=== PATIENT | female | born 1960 | race Caucasian/White ===

== ENCOUNTER 2025-01-05 09:49 | Outpatient (AMB) | payer BC, SELFPAY ==
--- NOTE | 2025-01-05 09:58 | A.OFFPC_ITS ---
Vital Signs 01/05/25 09:59 Height 5 ft 6.14 in Weight 135 lb BMI 21.7 BP 110/60 Blood Pressure Location Rt brachial Position Sitting Pulse 68 Pulse Source Pulse Oximeter Temp 96.9 F Temp Source Temporal Artery Scan Pulse Oximetry (%) 99 Oxygen Delivery Method Room Air Intake Visit Reasons: Establish Care Intake Note: Patient is a new patient here to establish care for Osteoporosis. Transferring care from [facility] ([place] Medical records have been requested and have not received. Tip Bander Required: No Frame Sample And Pattern Supervisor: Present Accompanied by: Spouse Allergies No Known Allergies Allergy (Verified 01/05/25 10:17) Medication List - Last Reconciled 01/05/25 by Nery Marmolejo PA-C amoxicillin 875 mg PO BID fluticasone propionate 50 mcg/actuation 1 spray intranasal BID Tobacco use date assessed: 01/05/25 Dental Screening Dental Screen Date: 01/05/25 Did you have a dental visit in the last 12 months?: Yes Did you have a dental problem in the last 6 months where you did not have access to dental care?: No Was dental information given to patient?: Patient has dentist HPI Establish Care HPI Details 64-year-old female coming to the office for the 1st time.? Patient is not known to [facility]. Patient is up-to-date on her bone density scan and mammogram. Last bone density scan 01/11/2024 revealing osteoporosis mammogram completed 11/21/2023 negative follow up in 1 year. The patient is a 64-year-old female presenting with coccyx pain. She has a known history of osteoporosis with previous implications for her lumbar spine and left femur, for which she is not currently on pharmacological treatment due to side effect concerns. The coccyx pain is revisiting a past injury, causing persistent localized tenderness, starting approximately six months ago. The patient has had previous falls but no recent ones correlating with this pain. An x-ray is suggested due to the risk indices involved associated with osteoporosis and possible pathological fractures. The patient reports historical sinusitis currently being treated with antibiotics, as well as recurrent earwax impaction which was addressed in a recent urgent care visit. 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 1. Little interest or pleasure in doing things: nearly every day 2. Feeling down, depressed, or hopeless: nearly every day 4. Feeling tired or having little energy: not at all 5. Poor appetite or overeating: not at all 6. Feeling bad about yourself - or that you are a failure or have let yourself or your family down: not at all 7. Trouble concentrating on things, such as reading the newspaper or watching television: not at all 8. Moving or speaking so slowly that other people could have noticed. Or the opposite - being so fidgety or restless that you have been moving around a lot more than usual: not at all 9. Thoughts that you would be better off or of hurting yourself in some way: not at all Depression Screening Interpretation: Positive Depression Screening Follow-up: Existing condition and Declines treatment Depression Screening Done: Yes Source: Developed by Drs. Shashi Springer, Yaneth Mcclellan, Andres Jimenes and colleagues, with an educational fletcher from [employer]. Thrive Questionnaire Date Thrive assessed: 01/05/25 I am a: Patient What is your living situation today?: I have a steady place to live Within the past 12 months, did the food you bought not last and you didn't have the money to get more?: Never true Within the past 12 months, did you worry whether your food would run out before you got money to buy more?: Never true Do you have trouble paying for medicines?: No Do you have trouble getting transportation to medical appointments?: No Do you have trouble paying your heating and electricity bill?: No Do you have trouble taking care of your child, family member or friend?: No Do you have trouble with day-to-day activities such as bathing, preparing meals, shopping, managing finances, etc.?: No Are you currently unemployed and looking for a job?: No Are you interested in more education?: No Please select the resources that you would like help with: None Currently or been in a relationship where the following occur: No concerns reported THRIVE Score: 0 AUDIT C Alcohol Use Questionnaire (AUDIT-C) 1. How often do you have a drink containing alcohol?: Never 3. How often do you have six or more drinks on one occasion?: Never Total Score: 0 CATRACHO-7 AMB Questionnaire CATRACHO-7 Date CATRACHO - 7 assessed: 01/05/25 Feeling nervous, anxious, or on edge: 0 = Not at all Not being able to stop or control worryin = Not at all Worrying too much about different things: 0 = Not at all Trouble relaxin = Not at all Being so restless that it is hard to sit still: 0 = Not at all Becoming easily annoyed or irritable: 0 = Not at all Feeling afraid as if something awful might happen: 0 = Not at all Total CATRACHO-7 score (0-4 normal; 5-9 mild; 10-14 moderate; 15-21 severe): 0 Source: Developed by Drs. Shashi Springer, Yaneth Mcclellan, Andres Jimenes and colleagues, with an educational fletcher from [employer]. Review of Systems Const Denies body aches, Denies chills, Denies fever(s), Denies headache(s) and Denies poor appetite Eyes Reports no additional complaints ENT Denies dysphagia, Denies dizziness, Denies headache(s) and Denies odynophagia Card Denies chest pain, Denies syncope, Denies edema, Denies irregular heart rhythm, Denies lightheadedness and Denies dyspnea Resp Denies cough and Denies dyspnea GI Denies abdominal pain, Reports constipation, Denies dysphagia, Denies diarrhea, Denies nausea, Denies odynophagia and Denies vomiting Reports no additional complaints Musc Reports no additional complaints and Denies abnormal gait Skin/Breast Reports system reviewed and no additional complaints, except as documented Neuro Denies abnormal gait, Denies dizziness, Denies syncope and Denies headache(s) Psych Reports no additional complaints Physical exam (Primary Care) Vital Signs: Last Vital Signs Temp 96.9 F 01/05/25 09:59 Pulse 68 01/05/25 09:59 BP 110/60 01/05/25 09:59 Pulse Ox 99 01/05/25 09:59 Oxygen Delivery Method Room Air 01/05/25 09:59 BMI result Body Mass Index 21.7 Tobacco/Smoking Status: Tobacco use Status Tobacco use date assessed 01/05/25 01/05/25 10:04 Patient Tobacco Use Status Never used Tobacco 01/05/25 10:04 e-Cigarette/Vaping Use Never Used 01/05/25 10:04 Depression Screening Interpretation: Positive Depression Screening Follow-up: Existing condition and Declines treatment Thrive Assessment: Date of Thrive Assessment Date Thrive assessed 01/05/25 01/05/25 10:04 Currently or been in a relationship where the following occur: No concerns reported Const General: cooperative, healthy appearing, comfortable and no acute distress Orientation/consciousness: patient oriented x3 HENMT Head: Yes normocephalic Ears: hearing grossly normal bilaterally General nose exam: Normal external nose present Eyes General: appearance normal, both eyes and all related structures Conjunctivae: conjunctivae normal Neck Neck: Yes full ROM and Yes no lymphadenopathy Resp Effort & Inspection: normal respiratory effort Auscultation: clear to auscultation bilaterally, no crackles, no rales, no rhonchi and no wheezes Cardio Rate: regular rate Rhythm: regular rhythm Back/Spine/Pelvis Other: Pain to palpation over coccyx region Skin General skin exam: no rashes or lesions noted Neuro General: patient oriented x3 Gait exam (Neuro): Normal gait present Extrem General: Yes normal to inspection, Yes full ROM and No edema Psych Affect: normal affect Attitude: cooperative Insight: Good insight present (Psych) Judgement: Good judgement present (Psych) Coding Level of Care Code New Pt Level 4 (84971) Diagnoses Osteoporosis M81.0 Coccyx pain M53.3 Screening for hypercholesterolemia Z13.220 Assessment & Plan Assessment & Plan (1) Osteoporosis: Code(s): M81.0 - Age-related osteoporosis without current pathological fracture Category: Medical Plan: The patient is advised to continue with her calcium and vitamin D regimen, and to engage in non-strenuous physical activity to prevent falls and benefit bone health. Referral placed to endocrinology (2) Coccyx pain: Code(s): M53.3 - Sacrococcygeal disorders, not elsewhere classified Category: Medical Plan: The patient will undergo an x-ray to assess the possibility of a fracture in the coccyx region. Discussions included osteoporosis management, highlighting potential material lister consultations for biologic options considering past negative experiences with bisphosphonates. (3) Screening for hypercholesterolemia: Code(s): Z13.220 - Encounter for screening for lipoid disorders Category: Medical Plan: Plans for regular screenings, including a scheduled mammogram and comprehensive bloodwork focusing on overall health, were also discussed. Blood work ordered Plan Patient was informed and verbally consented to the use of an ambient scribe for clinic note documentation during this visit. This note was constructed using voice recognition software. While every effort has been made to ensure accuracy and hogshead opener, still areas may have been included sometimes these areas may affect the content or meeting of the given symptoms. Total time spent caring for the patient today was 30 minutes. This includes time spent before the visit reviewing the chart, time spent during the visit, and time spent after the visit and documentation. Orders: Orders XR sacrum coccyx min 2V Today M53.3 - Sacrococcygeal disorders, not elsewhere classified Lipid Panel Today Z13.220 - Encounter for screening for lipoid disorders TSH reflex Free T4 Today Z00.00 - Encounter for general adult medical examination without abnormal findings Vitamin B12 and Folate Today Z00.00 - Encounter for general adult medical examination without abnormal findings Complete Blood Count Auto Diff Today Z00.00 - Encounter for general adult medical examination without abnormal findings Comprehensive Met. Panel Today Z00.00 - Encounter for general adult medical examination without abnormal findings Free T4 (Free Thyroxine) Today Z00.00 - Encounter for general adult medical examination without abnormal findings Vitamin D 25-OH Total Today Z00.00 - Encounter for general adult medical examination without abnormal findings Referrals Endocrinology Referral M81.0 - Age-related osteoporosis without current pathological fracture
[2025-01-05 09:59] VITALS: BP 110/60; PULSE 68; TEMP 36.1; O2SAT 99; BMI 21.7
--- OUTSIDE RECORDS SUMMARY | 2025-01-05 10:42 | XMS_ITS | Clinical Summary ---
Author Organization [facility] Address [address] [place] [phone] Phone Care Team Providers Care Table Saw Operator Name Role Phone Melanie Genao Primary Care Provider [phone] Allergies No known active allergies Medications cephalexin (KEFLEX) 500 mg capsule 11/25/2023 Active VITAMIN K2 ORAL Take by mouth 1 (one) time each day. Active multivitamin (MULTIPLE VITAMINS ORAL) Take by mouth. Active pyridoxine (B-6) 100 mg tablet Take 1 tablet (100 mg total) by mouth 1 (one) time each day. Active OMEGA-3 FATTY ACIDS-FISH OIL ORAL Take 2 tablets by mouth 1 (one) time each day. 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 Anxiety state 01/15/2007 Immunizations Name Administration Dates Next Due Tdap Tetanus diptheria acell ular pertussis (Boostrix; Adacel) 7yo and older 11/25/2023,02/18/2013 Surgical History Surgery Date Site/Laterality Comments OTHER SURGICAL HISTORY PROCEDURE: VA LAPS ABD PRTM&OMENTUM DX W/WO SPEC BR/WA SPX; COMMENT: exploratory lap for infertility COLONOSCOPY 2012 PROCEDURE: VA COLONOSCOPY FLX DX W/COLLJ SPEC WHEN PFRMD; COMMENT: normal CATARACT EXTRACTION 2013 Left PROCEDURE: HISTORICAL CATARACT REMOVAL Medical History Medical History Date Comments Anxiety state, unspecified DX:An xiety state, unspecified Premature ovarian failure age 40 DX:Pre mature ovarian failure Abnormal mammogram 07/20/2014 DX:Abnormal m ammogram Osteoporosis 06/14/2019 DX:Osteoporosis Family History Medical History Relation Name Comments Colon cancer Father he had UC as we ll. Other: Major depression Mother Relation Name Status Comments Father Alive Mother Alive Social History Tobacco Use Types Packs/Day Years Used Date Smoking Tobacco: Former Cigarettes Q uit: 02/18/2001 Smokeless Tobacco: Never Alcohol Use Standard Drinks/Week Comments Yes 0 (1 standard drink = 0.6 oz pur e alcohol) Comments Unknown Sex and Gender Information Value Date Recorded Sex Assigned at Not on file Legal Sex Female 2:36 AM EST Gender Identity Not on file Sexual Orientation Not on file Obstetrics History Last Filed Vital Signs Vital Sign Reading Time Taken Comments Blood Pressure 140/82 11/27/2023 11:07 AM EST Pulse 64 11/27/2023 11:07 AM EST Temperature - - Respiratory Rate - - Oxygen Saturation - - Inhaled Oxygen Concentration - - Weight 63.6 kg (140 lb 3.2 oz) 11/27/2023 11:07 AM EST Height 170.2 cm (5' 7 ) 11/27/2023 11:07 AM EST Body Mass Index 21.96 11/27/2023 11:07 AM EST Plan of Treatment Upcoming Encounters Date Type Department Care Team (Late st Contact Info) Description 01/07/2025 8:30 AM EST Appointment [facility] [address] [place] [id number] 06/12/2025 2:00 PM EDT Office Visit Internal Medicine - [place] [address] [facility] [address] [place] [id number] Carlos Alberto Woodward MD [address] [facility] [address] [place] [address] Health Maintenance Due Date Last Done Comments Pneumococcal Vaccine: 50+ Years (1 of 1 - PCV) 2011 Zoster Vaccines (1 of 2) 2011 Cervical Cancer Screening: Pap Smear 12/10/2014 12/10/2011, 12/10/2011 Colorectal Cancer Screening: Colonoscopy 10/26/2022 Depression Screening 10/26/2022 HIV Screening 10/26/2022 Social Influencers of Health Screening 10/26/2022 COVID-19 Vaccine ( season) 2024 05/08/2021, 04/10/2021 Influenza Vaccine (#1) 2024 Breast Cancer Screening 11/23/2025 11/23/19 24, 08/03/2022, 07/28/2021, Additional history exists Cholesterol Screening (Lipid Panel) 06/16/2027 06/16/2022 DTaP,Tdap,and Td Vaccines (3 - Td or Tdap) 11/25/2033 11/25/2023, 02/18/2013 Osteoporosis Screening (Bone Density Screening) 01/11/2034 01/11/2024, 07/15/2021, 06/13/2019 RSV Immunization Patients 60+ Years Old (1 - 1-dose 75+ series) 2036 Hepatitis C Screening Completed 03/19/2017 HIB Vaccines Aged Out No longer eligi ble based on patient's age to complete this topic HPV Vaccines Aged Out No longer eligi ble based on patient's age to complete this topic Hepatitis A Vaccines Aged Out No long er eligible based on patient's age to complete this topic Hepatitis B Vaccines Aged Out No long er eligible based on patient's age to complete this topic IPV Vaccines Aged Out No longer eligi ble based on patient's age to complete this topic MMR Vaccines Aged Out No longer eligi ble based on patient's age to complete this topic Meningococcal ACWY Vaccine Aged Out N o longer eligible based on patient's age to complete this topic Meningococcal B Vacine Aged Out No lo nger eligible based on patient's age to complete this topic Pneumococcal Vaccine: Pediatrics (0 to 5 Years) and At-Risk Patients (6 to 64 Years) Aged Out No longer eligible based on patient's age to complete this topic RSV Immunization Patients Under 20 months Aged Out No longer eligible based on patient's age to complete this topic Varicella Vaccines Aged Out No longer eligible based on patient's age to complete this topic Procedures Procedure Name Priority Date/Time Associated Diagnosis Comments SUE DEXA AXIAL SKELETON Routine 01/11/2024 5:18 PM EST Age-related osteoporosis without current pathological fracture SUE SCREENING DIGITAL Routine 11/23/2023 10:04 AM EST Encounter for screening mammogram for malignant neoplasm of breast LIPID PANEL Routine 06/16/2022 HM HEPATITIS C SCREENING Routine 03/19/2017 HPV Routine 12/10/2011 from Last 3 Months or Most Recently Relevant to Health Maintenance Results * [facility] DEXA AXIAL SKELETON (01/11/2024 5:18 PM EST) Anatomical Region Laterality Modality Mammography 01/11/2024 9:27 AM EST Narrative 01/11/2024 5:18 PM EST [facility] Diagnostic Imaging Department [address] [place] [address] Patient: ??PARENT,LAUREN ?/Age/Sex: 1960 - 63 - F Unit#: ??[id number] ? Location/Status: ??SPDIMAM/REG CLI ? Mnemonic/Ordering Site: ??MAMDEXAAX/SPMAM Ordering Physician: ??DOROTHY MAGDALENO MD [facility] Dexa Axial Skeleton - 01/11/24 - 956 Report Status:Signed History: Low estrogen state due to menopause. Tobacco user. Comparison: 07/15/21 Findings: Bone densitometry is performed utilizing dual energy x-ray absorptiometry (DXA) in the [employer] unit. The lumbar spine and proximal femora are evaluated in the AP projection. The FRAX questionaire was completed. The results indicate osteoporosis, with a lumbar spine T-score of -3.0. The Z score is -1.5, indicating low bone mineral density for age. There has been a statistically significant decrease in bone mineral density in the spine since the previous study. ??The detailed DEXA report will be mailed to the referring physician's office. DualFemur FRAX: 10-year Probability of Fracture: Major Osteoporotic 8.3 percent Hip 0.9 percent. IMPRESSION: Osteoporosis. [id number] Dictating Physician: ??ADELAIDA MELISSA MD Electronically Signed by: ??ADELAIDA MELISSA MD Dic Date/Time: ??01/11/241717 Sign date/Time: ??01/11/241717 Procedure Note Adelaida Melissa MD - 07/04/2024 [facility] Diagnostic Imaging Department [address] [place] [address] Patient: LAUREN BRAXTON /Age/Sex: 1960 - 63 - F Unit#: [id number] Location/Status: [facility] Mnemonic/Ordering Site: [facility] Ordering Physician: DOROTHY MAGDALENO MD [facility] Dexa Axial Skeleton - 01/11/24 - 57 Report Status:Signed History: Low estrogen state due to menopause. Tobacco user. Comparison: 07/15/21 Findings: Bone densitometry is performed utilizing dual energy x-ray absorptiometry(DXA) in the [employer] unit. The lumbar spine and proximal femora areevaluated in the AP projection. The FRAX questionaire was completed. The results indicate osteoporosis, with a lumbar spine T-score of -3.0.The Z score is -1.5, indicating low bone mineral density for age. There has been a statistically significant decrease in bone mineraldensity in the spine since the previous study. The detailed DEXA report will bemailed to the referring physician's office. DualFemur FRAX: 10-year Probability of Fracture: Major Osteoporotic 8.3percent Hip 0.9 percent. IMPRESSION: Osteoporosis. [id number] Dictating Physician: ADELAIDA MELISSA MD Electronically Signed by: ADELAIDA MELISSA MD Dic Date/Time: 01/11/241717 Sign date/Time: 01/11/241717 us Dorothy Magdaleno MD IMG BI PROCEDURES Final Resu lt * SUE SCREENING DIGITAL (11/23/2023 10:04 AM EST) Anatomical Region Laterality Modality Mammography 11/19/2023 8:25 AM EST Narrative 11/23/2023 10:04 AM EST [facility] Diagnostic Imaging Department [address] [place] [address] Patient: ??PARENT,LAUREN ?/Age/Sex: 1960 - 63 - F Unit#: ??[id number] ? Location/Status: ??SPDIMAM/REG CLI ? Mnemonic/Ordering Site: ??DIGSC/SPMAIN Ordering Physician: ??DOROTHY MAGDALENO MD [facility] Screening Digital - 11/21/23 - 1027 Report Status:Signed EXAM: [facility] Screening Digital EXAM DATE AND TIME: 11/21/2023 10:27 AM HISTORY: ??Annual screening COMPARISON: ??Multiple exams dating back to 2002 TECHNIQUE: Bilateral digital breast tomosynthesis was performed in the CC and MLO projections. Computer aided detection with [employer] 3D 3.1 was employed. TISSUE DENSITY: b. There are scattered areas of fibroglandular density. FINDINGS: No suspicious masses, grouped microcalcifications, or areas of architectural distortion are seen. The skin and vascularity are unremarkable. IMPRESSION: Stable mammographic appearance of the breasts. ??No evidence of malignancy is seen. A negative mammogram in the presence of a clinically suspicious palpable abnormality does not preclude the possibility of malignancy or alter the indications for biopsy. BI-RADS: ??Category 1: Negative RECOMMENDATION(S): 1: Routine screening mammogram BILATERAL in 1 year. 3341F, 7025F Dictating Physician: ??JOSE GUADALUPE TRIANA MD Electronically Signed by: ??JOSE GUADALUPE TRIANA MD Dic Date/Time: ??11/23/23 1004 Sign date/Time: ??11/23/23 1004 Procedure Note Jose Guadalupe Triana MD - 07/04/2024 [facility] Diagnostic Imaging Department [address] [place] [id number] Patient: PARENTLAUREN /Age/Sex: 1960 - 63 - F Unit#: [id number] Location/Status: SPDIMA/REG CLI Mnemonic/Ordering Site: [facility] Ordering Physician: DOROTHY MAGDALENO MD [facility] Screening Digital - 11/21/23 - 1027 Report Status:Signed EXAM: [facility] Screening Digital EXAM DATE AND TIME: 11/21/2023 10:27 AM HISTORY: Annual screening COMPARISON: Multiple exams dating back to 2002 TECHNIQUE: Bilateral digital breast tomosynthesis was performed in the CCand MLO projections. Computer aided detection with [employer] 3D 3.1was employed. TISSUE DENSITY: b. There are scattered areas of fibroglandular density. FINDINGS: No suspicious masses, grouped microcalcifications, or areas ofarchitectural distortion are seen. The skin and vascularity are unremarkable. IMPRESSION: Stable mammographic appearance of the breasts. No evidence of malignancyis seen. A negative mammogram in the presence of a clinically suspicious palpable abnormality does not preclude the possibility of malignancy or alter the indications for biopsy. BI-RADS: Category 1: Negative RECOMMENDATION(S): 1: Routine screening mammogram BILATERAL in 1 year. 3341F, 7025F Dictating Physician: JOSE GUADALUPE TRIANA MD Electronically Signed by: JOSE GUADALUPE TRIANA MD Dic Date/Time: 11/23/23 1004 Sign date/Time: 11/23/23 1004 Dorothy Magdaleno MD IMG BI PROCEDURES Final Resu lt * Lipid panel (06/16/2022) Pathologist [facility] LDL/HDL Ratio 3 0 - 4 Triglycerides 122 0 - 150 mg/dL Cholesterol 196 0 - 200 mg/dL HDL 72 >=40 mg/dL LDL Cholesterol 100 0 - 100 mg/dL Blood Venous blood specimen / Unknown Historical Provider LAB BLOOD ORDERABLES Suzanna l Result * Hepatitis C Screening (03/19/2017) Pathologist [facility] Hepatitis C Screening abstracted Historical Provider HEALTH MAINTENANCE Final Result * Cervical Cancer Screening: HPV (12/10/2011) Cervical Cancer Screening: HPV negative, abstracted us Historical Provider HEALTH MAINTENANCE Final Result from Last 3 Months or Most Recently Relevant to Health Maintenance Insurance [facility] Care Teams Table Saw Operator Relationship Specialty Start Date End Date Melanie Genao DO PCP - General Internal Medicine 02/05/22
== END 2025-01-05 10:45 | disposition home or self-care (01) ==
DX: M81.0 Age-related osteoporosis without current pathological fracture (principal); M53.3 Sacrococcygeal disorders, not elsewhere classified; Z13.220 Encounter for screening for lipoid disorders

== ENCOUNTER 2025-01-05 09:49 | Outpatient (REF) | payer BC, SELFPAY ==
--- NOTE | ~2025-01-05 | XR_ITS ---
EXAMINATION: XR SACRUM AND COCCYX CLINICAL INFORMATION: M53.3 - Sacrococcygeal disorders, not elsewhere classified COMPARISON: None available. TECHNIQUE: 2 views of the sacrum and 2 views of the coccyx were obtained. FINDINGS: No acute cortical disruption. Spondylosis lower lumbar spine. Osteopenia versus osteoporosis. No lytic or blastic lesions. Sclerosis in the left sacroiliac joint. XR/XR sacrum coccyx min 2V IMPRESSION: No gross acute fracture. Probable sacroiliitis, left side. Lower lumbar spondylosis. Electronically signed by: Mohinder Horvath MD 01/05/2025 03:43 PM SERGEY
--- OUTSIDE RECORDS SUMMARY | 2025-01-05 12:16 | XMS_ITS | Clinical Summary ---
Author Organization [facility] Address [address] [place] [phone] Phone Care Team Providers Care Hand Frame Surgical Elastic Knitter Name Role Phone Melanie Genao Primary Care Provider [phone] Allergies No known active allergies Medications cephalexin [...] Date Site/Laterality Comments OTHER SURGICAL HISTORY PROCEDURE: ID LAPS ABD PRTM&OMENTUM DX W/WO SPEC BR/WA SPX; COMMENT: exploratory lap for infertility COLONOSCOPY 2012 PROCEDURE: ID COLONOSCOPY FLX DX W/COLLJ SPEC WHEN PFRMD; [...] AM EST Appointment [facility] [address] [place] [id number] 06/12/2025 2:00 PM EDT Office Visit Internal Medicine - [place] 175 [facility] [address] [place] [phone] Carlos Alberto Woodward MD 175 [facility] [address] [place] [address] Health Maintenance Due Date Last Done Comments [...] Recently Relevant to Health Maintenance Results * [facility] DEXA AXIAL SKELETON (01/11/2024 5:18 PM EST) Anatomical Region Laterality Modality Mammography 01/11/2024 9:27 AM EST Narrative 01/11/2024 5:18 PM EST [facility] Diagnostic Imaging Department [address] [place] [address] Patient: ??PARENT,LAUREN ?/Age/Sex: 1960 - 63 - F Unit#: ??[id number] ? Location/Status: ??SPDIMAM/REG CLI ? Mnemonic/Ordering Site: ??MAMDEXAAX/SPMAM Ordering Physician: ??DOROTHY MAGDALENO MD [facility] Dexa Axial Skeleton - 01/11/24 - 956 Report Status:Signed History: Low estrogen state due to menopause. Tobacco user. Comparison: 07/15/21 Findings: Bone densitometry is performed utilizing dual energy x-ray absorptiometry (DXA) in the [employer] unit. The lumbar spine and proximal femora [...] 8.3 percent Hip 0.9 percent. IMPRESSION: Osteoporosis. [id number] Dictating Physician: ??ADELAIDA MELISSA MD Electronically Signed by: ??ADELAIDA MELISSA MD Dic Date/Time: ??01/11/241717 Sign date/Time: ??01/11/241717 Procedure Note Adelaida Melissa MD - 07/04/2024 [facility] Diagnostic Imaging Department [address] [place] [address] Patient: LAUREN BRAXTON /Age/Sex: 1960 - 63 - F Unit#: [id number] Location/Status: [facility] Mnemonic/Ordering Site: [facility] Ordering Physician: DOROTHY MAGDALENO MD [facility] Dexa Axial Skeleton - 01/11/24 - 57 Report Status:Signed History: Low estrogen state due to menopause. Tobacco user. Comparison: 07/15/21 Findings: Bone densitometry is performed utilizing dual energy x-ray absorptiometry(DXA) in the [employer] unit. The lumbar spine and proximal femora [...] Osteoporotic 8.3percent Hip 0.9 percent. IMPRESSION: Osteoporosis. [id number] Dictating Physician: ADELAIDA MELISSA MD Electronically Signed by: ADELAIDA MELISSA MD Dic Date/Time: 01/11/241717 Sign date/Time: 01/11/241717 us Dorothy Magdaleno MD IMG BI PROCEDURES Final Resu lt * SUE SCREENING DIGITAL (11/23/2023 10:04 AM EST) Anatomical Region Laterality Modality Mammography 11/19/2023 8:25 AM EST Narrative 11/23/2023 10:04 AM EST [facility] Diagnostic Imaging Department [address] [place] [address] Patient: ??PARENT,LAUREN ?/Age/Sex: 1960 - 63 - F Unit#: ??[id number] ? Location/Status: ??SPDIMAM/REG CLI ? Mnemonic/Ordering Site: ??DIGSC/SPMAIN Ordering Physician: ??DOROTHY MAGDALENO MD [facility] Screening Digital - 11/21/23 - 1027 Report Status:Signed EXAM: [facility] Screening Digital EXAM DATE AND TIME: 11/21/2023 10:27 AM HISTORY: ??Annual screening COMPARISON: ??Multiple exams dating back to 2002 TECHNIQUE: Bilateral digital breast tomosynthesis was performed in the CC and MLO projections. Computer aided detection with [employer] 3D 3.1 was employed. TISSUE DENSITY: b. [...] Note Jose Guadalupe Triana MD - 07/04/2024 [facility] Diagnostic Imaging Department [address] [place] [id number] Patient: PARENTLAUREN /Age/Sex: 1960 - 63 - F Unit#: [id number] Location/Status: SPDIMA/REG CLI Mnemonic/Ordering Site: [facility] Ordering Physician: DOROTHY MAGDALENO MD [facility] Screening Digital - 11/21/23 - 1027 Report Status:Signed EXAM: [facility] Screening Digital EXAM DATE AND TIME: 11/21/2023 10:27 AM HISTORY: Annual screening COMPARISON: Multiple exams dating back to 2002 TECHNIQUE: Bilateral digital breast tomosynthesis was performed in the CCand MLO projections. Computer aided detection with [employer] 3D 3.1was employed. TISSUE DENSITY: b. There [...] Resu lt * Lipid panel (06/16/2022) Pathologist [facility] LDL/HDL Ratio 3 0 - 4 Triglycerides 122 0 - 150 mg/dL Cholesterol 196 0 - 200 mg/dL HDL 72 >=40 mg/dL LDL Cholesterol 100 0 - 100 mg/dL Blood Venous blood specimen / Unknown Historical Provider LAB BLOOD ORDERABLES Suzanna l Result * Hepatitis C Screening (03/19/2017) Pathologist [facility] Hepatitis C Screening abstracted Historical Provider HEALTH MAINTENANCE Final Result * Cervical Cancer Screening: HPV (12/10/2011) Cervical Cancer Screening: HPV negative, abstracted us Historical Provider HEALTH MAINTENANCE Final Result from Last 3 Months or Most Recently Relevant to Health Maintenance Insurance [facility] Care Teams Hand Frame Surgical Elastic Knitter Relationship Specialty Start Date End Date Melanie Genao DO PCP - General Internal Medicine 02/05/22
== END 2025-01-05 09:50 | disposition home or self-care (01) ==
LOC: HO.XRAY 09:49
DX: M53.3 Sacrococcygeal disorders, not elsewhere classified (principal)
CPT/HCPCS: 72220

== ENCOUNTER → 2025-01-05 11:05 | Outpatient (BNV) | payer BC, SELFPAY | PROVIDERS: Visit Provider Radiology Diagnostic Radiology | DX: M46.1 Sacroiliitis, not elsewhere classified (principal); M47.896 Other spondylosis, lumbar region | CPT/HCPCS: 72220 ==

== ENCOUNTER 2025-01-06 10:00 | Outpatient (REF) | payer BC, SELFPAY ==
[2025-01-06 10:16] LABS: MANUAL DIFF FLAG NO
[2025-01-06 10:34] LABS: Basophils Absolute Auto 0.1 X10*3/uL (0.0-0.2); Basophils Percent Auto 0.7 % (0-2); Eosinophils Absolute Auto 0.1 X10*3/uL (0.0-0.4); Eosinophils Percent Auto 1.7 % (0-4); Hematocrit 40.1 % (37.0-47.0); Imm Gran Abs Auto 0.02 X10*3/uL (0.00-0.03); Imm Gran Pct Auto 0.3 % (0.0-0.4); Lymphocytes Absolute Auto 2.1 X10*3/uL (1.2-4.9); Lymphocytes Percent Auto 31.2 % (20-40); Mean Corpuscular HGB Conc 32.4 g/dl (31.0-35.0); Mean Corpuscular Hemoglobin 28.6 pg (27.0-33.0); Mean Corpuscular Volume 88.1 fL (80.0-98.0); Monocytes Absolute Auto 0.5 X10*3/uL (0.1-1.2); Monocytes Percent Auto 6.9 % (2-11); Neutrophils Absolute Auto 4.1 x10*3/uL (2.0-8.3); Neutrophils Percent Auto 59.2 % (45-73); Platelet Count 216 X10*3/uL (160-400); Red Blood Count 4.55 X10*6/uL (4.20-5.50); Red Cell Distribution Width 13.7 % (11.0-16.0); White Blood Count 6.9 X10*3/uL (4.8-10.8)
--- OUTSIDE RECORDS SUMMARY | 2025-01-06 10:44 | XMS_ITS | Clinical Summary ---
Author Organization [facility] Address [address] [place] [phone] Phone Care Team Providers Care Corn Lab Technician Name Role Phone Nery Marmolejo Primary Care Provider Allergies No known active allergies Medications cephalexin [...] Date Site/Laterality Comments OTHER SURGICAL HISTORY PROCEDURE: [place] LAPS ABD PRTM&OMENTUM DX W/WO SPEC BR/WA SPX; COMMENT: exploratory lap for infertility COLONOSCOPY 2012 PROCEDURE: [place] COLONOSCOPY FLX DX W/COLLJ SPEC WHEN PFRMD; [...] Information Value Date Recorded Sex Assigned at Female 01/05/2025 12:34 PM EST Legal Sex Female 2:36 AM EST Gender Identity Female 01/05/2025 12:34 PM EST Sexual Orientation Not on file Obstetrics History [...] AM EST Appointment [facility] [address] [place] [phone] 06/12/2025 2:00 PM EDT Office Visit Internal Medicine - [place] [address] [phone] Carlos Alberto Woodward MD [address] [address] Health Maintenance Due Date Last Done Comments Pneumococcal Vaccine: 50+ Years (1 of 1 - PCV) 2011 Zoster Vaccines (1 of 2) 2011 Cervical Cancer Screening: Pap Smear 12/10/2014 12/10/2011, 12/10/2011 Colorectal Cancer Screening: Colonoscopy 10/26/2022 Depression Screening 10/26/2022 HIV Screening 10/26/2022 Social Influencers of Health Screening 10/26/2022 COVID-19 Vaccine (3 - 2023- season) 2024 05/08/2021, 04/10/2021 Influenza Vaccine (#1) [...] Procedure Name Priority Date/Time Associated Diagnosis Comments [facility] DEXA AXIAL SKELETON Routine 01/11/2024 5:18 PM EST Age-related osteoporosis without current pathological fracture [facility] SCREENING DIGITAL Routine 11/23/2023 10:04 AM EST Encounter for screening mammogram for malignant neoplasm of breast LIPID PANEL Routine 06/16/2022 HEPATITIS C SCREENING Routine 03/19/2017 HPV Routine 12/10/2011 from Last 3 Months or Most Recently Relevant to Health Maintenance Results * [facility] DEXA AXIAL SKELETON (01/11/2024 5:18 PM EST) Anatomical Region Laterality Modality Mammography 01/11/2024 9:27 AM EST Narrative 01/11/2024 5:18 PM EST [facility] Diagnostic Imaging Department [address] [place] [address] Patient: ??PARENT,LAUREN ?/Age/Sex: 1960 - 63 - F Unit#: ??[id number] ? Location/Status: ??SPDIMAM/REG CLI ? Mnemonic/Ordering Site: ??MAMDEXAAX/SPMAM Ordering Physician: ??DOROTHY MAGDALENO MD [facility] Dexa Axial Skeleton - 01/11/24 - 0957 Report Status:Signed History: Low estrogen state due to menopause. Tobacco user. Comparison: 07/15/21 Findings: Bone densitometry is performed utilizing dual energy x-ray absorptiometry (DXA) in the [employer] unit. The lumbar spine and proximal femora [...] 8.3 percent Hip 0.9 percent. IMPRESSION: Osteoporosis. [id number] Dictating Physician: ??ADELAIDA MELISSA MD Electronically Signed by: ??ADELAIDA MELISSA MD Dic Date/Time: ??01/11/241717 Sign date/Time: ??01/11/241717 Procedure Note Adelaida Melissa MD - 07/04/2024 [facility] Diagnostic Imaging Department [address] [place] [address] Patient: LAUREN BRAXOTN /Age/Sex: 1960 - 63 - F Unit#: [id number] Location/[facility] Mnemonic[facility]ing [facility] Ordering Physician: DOROTHY MAGDALENO MD [facility] Dexa Axial Skeleton - 01/11/24 - 0957 Report Status:Signed History: Low estrogen state due to menopause. Tobacco user. Comparison: 07/15/21 Findings: Bone densitometry is performed utilizing dual energy x-ray absorptiometry(DXA) in the [employer] unit. The lumbar spine and proximal femora [...] Osteoporotic 8.3percent Hip 0.9 percent. IMPRESSION: Osteoporosis. [id number] Dictating Physician: ADELAIDA MELISSA MD Electronically Signed by: ADELAIDA MELISSA MD Dic Date/Time: 01/11/241717 Sign date/Time: 01/11/241717 us Dorothy Magdaleno MD IMG BI PROCEDURES Final Resu lt * SUE SCREENING DIGITAL (11/23/2023 10:04 AM EST) Anatomical Region Laterality Modality Mammography 11/19/2023 8:25 AM EST Narrative 11/23/2023 10:04 AM EST [facility] Diagnostic Imaging Department [address] [place], [place] [phone] Patient: ??PARENT,LAUREN ?/Age/Sex: 1960 63 - F Unit#: ??[id number] ? Location/Status: ??SPDIMAM/REG CLI ? Mnemonic/Ordering Site: ??DIGSC/SPMAIN Ordering Physician: ??DOROTHY MAGDALENO MD [facility] Screening Digital - 11/21/23 - 7 Report Status:Signed EXAM: [facility] Screening Digital EXAM DATE AND TIME: 11/21/2023 10:27 AM HISTORY: ??Annual screening COMPARISON: ??Multiple exams dating back to 2002 TECHNIQUE: Bilateral digital breast tomosynthesis was performed in the CC and MLO projections. Computer aided detection with [employer] 3D 3.1 was employed. TISSUE DENSITY: b. [...] Note Jose Guadalupe Triana MD - 07/04/2024 [facility] Diagnostic Imaging Department [address] [place] [id number] Patient: LAUREN BRAXTON /Age/Sex: 1960 - 63 - F Unit#: [id number] Location/Status: [facility] CLI Mnemonic/Ordering Site[facility] Ordering Physician: DOROTHY MAGDALENO MD [facility] Screening Digital - 11/21/23 - 1027 Report Status:Signed EXAM: [facility] Screening Digital EXAM DATE AND TIME: 11/21/2023 10:27 AM HISTORY: Annual screening COMPARISON: Multiple exams dating back to 2002 TECHNIQUE: Bilateral digital breast tomosynthesis was performed in the CCand MLO projections. Computer aided detection with [employer] 3D 3.1was employed. TISSUE DENSITY: b. There [...] Final Resu lt * Lipid panel (06/16/2022) LDL/HDL Ratio 3 0 - 4 Triglycerides 122 0 - 150 mg/dL Cholesterol 196 0 - 200 mg/dL HDL 72 >=40 mg/dL LDL Cholesterol 100 0 - 100 mg/dL Blood Venous blood specimen / Unknown Historical Provider LAB BLOOD ORDERABLES Suzanna l Result * Hepatitis C Screening (03/19/2017) Pathologist [facility] Hepatitis C Screening abstracted Historical Provider HEALTH MAINTENANCE Final Result * Cervical Cancer Screening: HPV (12/10/2011) Cervical Cancer Screening: HPV negative, abstracted Historical Provider HEALTH MAINTENANCE Final Result from Last 3 Months or Most Recently Relevant to Health Maintenance Insurance [facility] Care Teams Corn Lab Technician Relationship Specialty Start Date End Date Nery Marmolejo PA [address] [place] [address], [address] [place] [address] PCP - General 01/05/25
[2025-01-06 11:24] LABS: Alanine Aminotransferase 17 U/L (0-31); Alkaline Phosphatase 76 U/L (39-117); Anion Gap 8 (12-20); Aspartate Amino Transferase 23 U/L (5-31); Bilirubin Total 0.3 mg/dL (0.0-1.0); Blood Urea Nitrogen 12 mg/dL (9-16); Calcium 9.7 mg/dL (8.4-10.2); Carbon Dioxide 28 mmol/L (22-29); Chloride 108 mmol/L (96-108); Cholesterol 194 mg/dL (<200); Estimated Glomerular Filt Rate > 60; Free T4 (Free Thyroxine) 0.92 ng/dL (0.71-1.85); Glucose Random 96 mg/dL (60-115); HDL Cholesterol 68 mg/dL (>40); LDL Cholesterol Calculated 114 mg/dL (<100); Potassium 4.4 mmol/L (3.3-5.1); Sodium 140 mmol/L (135-145); TSH reflex Free T4 1.46 uIU/mL (0.32-4.0); Total Protein 7.9 g/dL (6.5-8.0); Triglycerides 61 mg/dL (<150); Vitamin D 25-OH Total 60.2 ng/mL (>30)
[2025-01-06 11:41] LABS: Folate 11.7 ng/mL (> or = 4.0); Vitamin B12 575 pg/mL (200-900)
== END 2025-01-06 10:01 | disposition home or self-care (01) ==
LOC: HO.LAB 10:00
DX: Z00.00 Encounter for general adult medical examination without abnormal findings (principal); Z13.220 Encounter for screening for lipoid disorders; Z13.6 Encounter for screening for cardiovascular disorders
CPT/HCPCS: 36415; 80053; 80061; 82306; 82607; 82746; 84439; 84443; 85025

== ENCOUNTER 2025-01-30 08:59 | Outpatient (AMB) | payer BC, SELFPAY ==
--- NOTE | 2025-01-30 09:01 | MHC.OFFVIS ---
Vital Signs 01/30/25 09:05 Height 5 ft 7.17 in Weight 135 lb 5.821 oz BMI 21.1 BP 108/68 Blood Pressure Location Rt brachial Position Sitting Pulse 65 Pulse Source Pulse Oximeter Pulse Oximetry (%) 98 Oxygen Delivery Method Room Air Intake Visit Reasons: Age-related osteoporosis w/o current patho frac Intake Note: New patient internally referred by PCP for Age-related Osteoporosis. Doughnut Icer Required: No Accompanied by: Significant Other Allergies No Known Allergies Allergy (Verified 01/30/25 09:05) Medication List - Last Reconciled 01/30/25 by Shashi Harmon MD ascorbic acid (vitamin C) 1 g PO BID calcium citrate 250 mg PO QID cholecalciferol (vitamin D3) 25 mcg PO DAILY fluticasone propionate 50 mcg/actuation 1 spray intranasal BID [id number]-fish oil-vit D3 [phone] bp-xw-bz-unit caps PO HPI Comments Details: 64 YO Female with is seen in consultation at the request of PCP for Osteoporosis. The patient is a 64-year-old female presenting with osteoporosis. She was diagnosed with osteoporosis in 2020 and treated with Fosamax but discontinued due to anxiety. No further osteoporosis medications have been taken since. She underwent follow-up bone density testing in 2021 and 2023, which reflected a decline in bone health, as characterized by a T-score of approximately -3. An inch of height loss has been noted. The patient denies any osteoporotic fractures and manages her condition with calcium and vitamin D supplementation. She is incorporating dietary modifications to support bone health, despite admitting to limited engagement in weight-bearing exercises, alleviated partially through vibration plate usage at home. Has several servings of dietary calcium per day in the form of cheese, broccoli , salmon . Takes Calcium supplement 1000mg daily in divided doses. Takes 1000 IU of Vitamin D daily. Denies ever using PPI, anticoagulant, antiepileptic or glucocorticoid medication. Not Does weight bearing exercise . 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 Limited engagement in weight-bearing exercise due to recent personal losses. Incorporates vibration plate exercises at home when possible. Previously practiced squats. Fracture history: No as adult Height loss: 1 inch CIRCULATION WORKER history: Menarche at age 13 - menopause in 50 s - irregular menses Denies history of Kidney stones: Denies family history of Osteoporosis or hip fracture. UTD on dental cleanings and sees dentist every 6 months. No planned upcoming dental work or extractions. No smoking - ex tobacco use 20 yrs ago . 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 Absence of blue sclera. Absence of kyphosis. Thyroid gland is of nl size and weighs 15 gms. There are no thyroid nodules palpated. Lungs CTA. Heart S1 S2 Reg R/R Abdominal exam benign. Muscle strength 5/5 . Examination of spine reveals absence of tenderness on palpation Assessment & Plan Assessment & Plan (1) Osteoporosis: Code(s): M81.0 - Age-related osteoporosis without current pathological fracture Category: Medical Plan: This is a 64-year-old white female sent to endocrinology for evaluation of osteoporosis. Partial secondary workup has been performed We will complete secondary workup by checking SPEP, urine immunofixation, phosphorus level, 24 hour urine for calcium and creatinine. Will ensure 1200 mg of calcium and vitamin D3. Assuming secondary workup was negative, could consider treatment either with anabolic initially proceeded by anti resorptive therapy considering very low bone density in the lumbar spine and high risk for fracture. Could consider repeating bone density again prior to initiating therapy Osteoporosis diagnosis confirmed with progressive decrease in bone density. The patient reports a negative history for notable osteoporotic fractures. Multiple consultations about potential treatments including anabolic agents and bisphosphonates were tabled, with subsequent urine analysis to be performed to assess for any metabolic anomalies influencing calcium levels. Currently maintained on calcium and vitamin D supplementation with adjustments recommended toward diet and exercise routines. I discussed the current status of her osteoporosis and potential management strategies, focusing on the pharmacologic possibilities, lifestyle changes, and monitoring strategies. We also reviewed the reasons for her previous medication's adverse reaction and examined alternative treatments, including recombinant human parathyroid hormone analogs such as Forteo and Tymlos as well as Evenity as considerations given the patient's T-score of -3. Risks, benefits, and alternatives of these options were discussed alongside the importance of complementing therapy with weight-bearing exercises and calcium-rich diet. Encouragement was given for pursuing further diagnostic clarity through a detailed urine collection to rule out hypercalciuria, and we agreed on the necessity of closely reviewing bone density results from reputable sources, potentially considering another facility for future testing. She expressed concerns about medication side effects, and I provided reassurance about the likelihood and management of such effects. The patient had an opportunity to ask questions regarding treatment plan. The patient expressed understanding and agreement with the above treatment plan. Patient was informed and verbally consented to the use of an ambient scribe for clinic note documentation during this visit. Orders: Orders Protein Electrophoresis, Serum Today M81.0 - Age-related osteoporosis without current pathological fracture Calcium, 24 Hr Ur Today M81.0 - Age-related osteoporosis without current pathological fracture Creatinine, 24 Hr Group Today M81.0 - Age-related osteoporosis without current pathological fracture Phosphorus Today M81.0 - Age-related osteoporosis without current pathological fracture Immunofixation, Random Urine Today M81.0 - Age-related osteoporosis without current pathological fracture Coding Level of Care Code New Pt Level 4 (75576) Diagnoses Osteoporosis M81.0
[2025-01-30 09:05] VITALS: BP 108/68; PULSE 65; O2SAT 98; BMI 21.1
--- OUTSIDE RECORDS SUMMARY | 2025-01-30 09:36 | XMS_ITS | Encounter Summary ---
Author Organization [facility] Address [address] [place] [address] Care Team Providers Care Special Education Associate Name Role Phone Nery Marmolejo Primary Care Provider [phone] Reason for Referral * Imaging (Routine) - Closed Specialty Diagnoses / Procedures Referred By Carlos dowell Referred To Contact Radiology Diagnoses Encounter for screening mammogram for malignant neoplasm of breast Procedures MG Mammo Digital Screening w Dorothy Sim MD [address] [place] [phone] Phone: tel: fax: [address] [address] Phone: tel: Referral ID Status Reason Start Date Expiration Date Visits Re quested Visits Authorized [id number] Closed 12/14/2024 12/14/2025 1 1 Reason for Visit * Imaging (Routine) - Closed Specialty Diagnoses / Procedures Referred By Carlos dowell Referred To Contact Radiology Diagnoses Encounter for screening mammogram for malignant neoplasm of breast Procedures MG Mammo Digital Screening w Dorothy Sim MD [address] [place] [phone] Phone: tel: fax: [address] [address] Phone: tel: Referral ID Status Reason Start Date Expiration Date Visits Re quested Visits Authorized [id number] Closed 12/14/2024 12/14/2025 1 1 Encounter Details Date Type Department Care Team (Latest Contact Info) Description 01/07/2025 8:18 AM EST - 01/07/2025 11:59 PM EST [facility] [address] [place] [phone] Encounter for screening mammogram for malignant neoplasm of breast Discharge Disposition: Home or Self Care Social History Tobacco Use Types Packs/Day Years Used Date Smoking Tobacco: Former Cigarettes Q uit: 02/18/2001 Smokeless Tobacco: Never Alcohol Use Standard Drinks/Week Comments Yes 0 (1 standard drink = 0.6 oz pur e alcohol) Comments No Sex and Gender Information Value Date Recorded Sex Assigned at Female 01/05/2025 12:34 PM EST Legal Sex Female 2:36 AM EST Gender Identity Female 01/05/2025 12:34 PM EST Sexual Orientation Not on file documented as of this encounter Last Filed Vital Signs Vital Sign Reading Time Taken Comments Blood Pressure - - Pulse - - Temperature - - Respiratory Rate - - Oxygen Saturation - - Inhaled Oxygen Concentration - - Weight 59 kg (130 lb) 01/07/2025 8:22 AM EST Height 170.2 cm (5' 7 ) 01/07/2025 8:22 AM EST Body Mass Index 20.36 01/07/2025 8:22 AM EST documented in this encounter Medications at Time of Discharge cephalexin (KEFLEX) 500 mg capsule 11/25/2023 multivitamin (MULTIPLE VITAMINS ORAL) Take by mouth. OMEGA-3 FATTY ACIDS-FISH OIL ORAL Take 2 tablets by mouth 1 (one) time each day. pyridoxine (B-6) 100 mg tablet Take 1 tablet (100 mg total) by mouth 1 (one) time each day. VITAMIN K2 ORAL Take by mouth 1 (one) time each day. documented as of this encounter Discharge Disposition Disposition Code Departure Means Destination Home or Self Care documented in this encounter Plan of Treatment Upcoming Encounters Date Type Department Care Team (Late st Contact Info) Description 06/12/2025 2:00 PM EDT Office Visit Internal Medicine - [place] [address] [facility] [address] [place] [phone] Carlos Alberto Woodward MD [address] [facility] [address] [place] [address] documented as of this encounter Procedures Procedure Name Priority Date/Time Associated Diagnosis Comments MG MAMMO DIGITAL SCREENING W JÚNIOR BILAT Routine 01/07/2025 8:31 AM EST Encounter for screening mammogram for malignant neoplasm of breast documented in this encounter Results * MG Mammo Digital Screening w Júnior bilat (01/07/2025 8:31 AM EST) Anatomical Region Laterality Modality Breast Bilateral Mammography 01/11/2025 7:27 AM EST Impressions 01/11/2025 7:31 AM EST No mammographic evidence of malignancy. ?? No suspicious interval change. A negative mammogram in the presence of a clinically suspicious palpable abnormality does not preclude the possibility of malignancy or alter the indications for biopsy. ASSESSMENT: ?? BI-RADS 1: NEGATIVE RECOMMENDATION(S): 1: Routine screening mammogram BILATERAL in 1 year. -------- FINAL REPORT -------- Dictated By: Syed Sigala Dictated Date: 01/11/2025 07:27 ET Assigned Physician: Syed Sigala Reviewed and Electronically Signed By: Syed Sigala Signed Date: 01/11/2025 07:31 ET Workstation ID: [id number] Transcribed By: Self Edit Transcribed Date: 01/11/2025 07:27 ET Narrative 01/11/2025 7:31 AM EST EXAM: ??SCREENING MAMMOGRAPHY, BILATERAL HISTORY: ??SCREENING. ??No additional history. COMPARISON: ??11/21/2023, 08/02/2022, 07/27/2021, 06/13/2020 TECHNIQUE: Synthesized CC and MLO projections of each breast. ??Tomosynthesis of each breast in the CC and MLO projections. ADDITIONAL IMAGING: None Computer-aided detection was employed with the iCAD ??profound AI 3-D. TISSUE DENSITY: There are scattered areas of fibroglandular density. (BI-RADS category B) FINDINGS: RIGHT BREAST: No suspicious mass. No suspicious calcification. No distortion. ?? No additional suspicious right breast findings LEFT BREAST: No suspicious mass. No suspicious calcification. No distortion. ?? No additional suspicious left breast findings Procedure Note Syed Sigala MD - 01/11/2025 EXAM: SCREENING MAMMOGRAPHY, BILATERAL HISTORY: SCREENING. No additional history. COMPARISON: 11/21/2023, 08/02/2022, 07/27/2021, 06/13/2020 TECHNIQUE: Synthesized CC and MLO projections of each breast.Tomosynthesis of each breast in the CC and MLO projections. ADDITIONAL IMAGING: None Computer-aided detection was employed with the iCAD AdexLink AI 3-D. TISSUE DENSITY: There are scattered areas of fibroglandular density.(BI-RADS category B) FINDINGS: RIGHT BREAST: No suspicious mass. No suspicious calcification. No distortion. Noadditional suspicious right breast findings LEFT BREAST: No suspicious mass. No suspicious calcification. No distortion. Noadditional suspicious left breast findings IMPRESSION: No mammographic evidence of malignancy. No suspicious interval change. A negative mammogram in the presence of a clinically suspicious palpableabnormality does not preclude the possibility of malignancy or alter theindications for biopsy. ASSESSMENT: BI-RADS 1: NEGATIVE RECOMMENDATION(S): 1: Routine screening mammogram BILATERAL in 1 year. -------- FINAL REPORT -------- Dictated By: Syed Sigala Dictated Date: 01/11/2025 07:27 ET Assigned Physician: Syed Sigala Reviewed and Electronically Signed By: Syed Sigala Signed Date: 01/11/2025 07:31 ET Workstation ID: [id number] Transcribed By: Self Edit Transcribed Date: 01/11/2025 07:27 ET us Dorothy Bundy MD IMG BI PROCEDURES Final Resu lt documented in this encounter Visit Diagnoses Diagnosis Encounter for screening mammogram for malignant neoplasm of breast documented in this encounter Care Teams Special Education Associate Relationship Specialty Start Date End Date Nery Marmolejo PA [address] [place] [address], [address] [place] [address] PCP - General 01/05/25 documented as of this encounter
--- OUTSIDE RECORDS SUMMARY | 2025-01-30 09:36 | XMS_ITS | Clinical Summary ---
Author Organization [facility] Address [address] [place] [phone] Phone Care Team Providers Care Power Electronics Engineer Name Role Phone Nery Marmolejo Primary Care Provider [phone] Allergies No known active allergies Medications cephalexin [...] 04/25/2010 Xerosis cutis 09/23/2007 Anxiety state 01/15/2007 Encounters Date Type Department Care Team Description 01/07/2025 8:18 AM EST - 01/07/2025 11:59 PM EST [facility] [address] [phone] Encounter for screening mammogram for malignant neoplasm of breast Discharge Disposition: Home or Self Care from Last 3 Months Immunizations Name Administration Dates Next Due Tdap Tetanus diptheria acell ular pertussis (Boostrix; Adacel) 7yo and older 11/25/2023,02/18/2013 Surgical History Surgery Date Site/Laterality Comments OTHER SURGICAL HISTORY 1980s PROCEDURE: TX LAPS ABD PRTM&OMENTUM DX W/WO SPEC BR/WA SPX; COMMENT: exploratory lap for infertility COLONOSCOPY 2012 PROCEDURE: TX COLONOSCOPY FLX DX W/COLLJ SPEC WHEN PFRMD; COMMENT: normal CATARACT EXTRACTION 2014 Left PROCEDURE: HISTORICAL CATARACT REMOVAL Medical History [...] Sexual Orientation Not on file Obstetrics History Para Term AB IAB SAB Ectopic Multiple Livin g Live Births 1 Last Filed Vital Signs Vital Sign Reading [...] Mass Index 20.36 01/07/2025 8:22 AM EST Plan of Treatment Upcoming Encounters Date Type Department Care Team (Late st Contact Info) Description 06/12/2025 2:00 PM EDT Office Visit Internal Medicine - [place] [address] [facility] [address] [place] [address] Carlos Alberto Woodward MD 175 [facility] [address] [place] [address] Health Maintenance Due Date Last Done Comments Pneumococcal Vaccine: 50+ Years (1 of 1 - PCV) 2011 Zoster Vaccines (1 of 2) 2011 Cervical Cancer Screening: Pap Smear 12/10/2014 12/10/2011, 12/10/2011 Colorectal Cancer Screening: Colonoscopy 10/26/2022 Depression Screening 10/26/2022 HIV Screening 10/26/2022 Social Influencers of Health Screening 10/26/2022 COVID-19 Vaccine (3 - season) 2024 05/08/2021, 04/10/2021 Influenza Vaccine (#1) 2024 Breast Cancer Screening 01/07/2027 01/07/20, 11/23/2023, 08/03/2022, Additional history exists Cholesterol Screening (Lipid Panel) [...] screening mammogram for malignant neoplasm of breast [facility] DEXA AXIAL SKELETON Routine 01/11/2024 5:18 PM EST Age-related osteoporosis without current pathological fracture LIPID PANEL Routine 06/16/2022 HEPATITIS C SCREENING Routine 03/19/2017 HPV Routine 12/10/2011 from Last 3 Months or Most Recently Relevant to Health Maintenance Results * MG Mammo Digital Screening w [...] Signed Date: 01/11/2025 07:31 ET Workstation ID: [id number] Transcribed By: Self Edit Transcribed Date: 01/11/2025 [...] Computer-aided detection was employed with the iCAD profound AI 3-D. TISSUE DENSITY: There are scattered [...] Signed Date: 01/11/2025 07:31 ET Workstation ID: [id number] Transcribed By: Self Edit Transcribed Date: 01/11/2025 07:27 ET us Dorothy Magdaleno MD IMG BI PROCEDURES Final Resu lt * SUE DEXA AXIAL SKELETON (01/11/2024 5:18 PM EST) Anatomical Region Laterality Modality Mammography 01/11/2024 9:27 AM EST Narrative 01/11/2024 5:18 PM EST [facility] Diagnostic Imaging Department [address] [place] [id number] Patient: ??PARENT,LAUREN ?/Age/Sex: 1960 - 63 - F Unit#: ??[id number] ? Location/Status: ??SPDIMAM/REG CLI ? Mnemonic/Ordering Site: ??MAMDEXAAX/SPMAM Ordering Physician: ??DOROTHY MAGDALENO MD [facility] Dexa Axial Skeleton - 01/11/24 - 57 Report Status:Signed History: Low estrogen state due to menopause. Tobacco user. Comparison: 07/15/21 Findings: Bone densitometry is performed utilizing dual energy x-ray absorptiometry (DXA) in the [facility] unit. The lumbar spine and proximal femora [...] 8.3 percent Hip 0.9 percent. IMPRESSION: Osteoporosis. [id number] Dictating Physician: ??ADELAIDA MELISSA MD Electronically Signed by: ??ADELAIDA MELISSA MD Dic Date/Time: ??01/11/241717 Sign date/Time: ??01/11/241717 Procedure Note Adelaida Melissa MD - 07/04/2024 [facility] Diagnostic Imaging Department [address] [place] [id number] Patient: LAUREN BRAXTON /Age/Sex: 1960 - 63 - F Unit#: [id number] [facility] Ordering Physician: DOROTHY MAGDALENO MD [facility] Dexa Axial Skeleton - 01/11/24 - 57 Report Status:Signed History: Low estrogen state due to menopause. Tobacco user. Comparison: 07/15/21 Findings: Bone densitometry is performed utilizing dual energy x-ray absorptiometry(DXA) in the [facility] unit. The lumbar spine and proximal femora [...] Osteoporotic 8.3percent Hip 0.9 percent. IMPRESSION: Osteoporosis. [id number] Dictating Physician: ADELAIDA MELISSA MD Electronically Signed by: ADELAIDA MELISSA MD Dic Date/Time: 01/11/241717 Sign date/Time: 01/11/241717 Result [facility] Dorothy Magdaleno MD IMG BI PROCEDURES Final Resu lt * Lipid panel (06/16/2022) [facility] LDL/HDL Ratio 3 0 - 4 Triglycerides 122 0 - 150 mg/dL Cholesterol 196 0 - 200 mg/dL HDL 72 >=40 mg/dL LDL Cholesterol 100 0 - 100 mg/dL Blood Venous blood specimen / Unknown Result [facility] Historical Provider LAB BLOOD ORDERABLES Suzanna l Result * Hepatitis C Screening (03/19/2017) [facility] Hepatitis C Screening abstracted Result [facility] Historical Provider HEALTH MAINTENANCE Final Result * Cervical Cancer Screening: HPV (12/10/2011) [facility] Cervical Cancer Screening: HPV negative, abstracted Result [facility] Historical Provider HEALTH MAINTENANCE Final Result from Last 3 Months or Most Recently Relevant to Health Maintenance Insurance [facility] Care Teams Power Electronics Engineer Relationship Specialty Start Date End Date Nery Marmolejo PA [address] [place] [address], [address] [place] [address] PCP - General 01/05/25
== END 2025-01-30 09:56 | disposition home or self-care (01) ==
LOC: HO.ENCR 09:00
PROVIDERS: Visit Provider Internal Medicine Endocrinology, Diabetes & Metabolism
DX: M81.0 Age-related osteoporosis without current pathological fracture (principal)
CPT/HCPCS: 99204

== ENCOUNTER → 2025-01-30 08:59 | Outpatient (BNVA) | payer BC, SELFPAY | PROVIDERS: Visit Provider Internal Medicine Endocrinology, Diabetes & Metabolism ==

== ENCOUNTER 2025-01-30 10:03 | Outpatient (REF) | payer BC, SELFPAY ==
[2025-01-31 21:59] LABS: Prot Elec - Albumin 4.2 g/dL (3.8-4.8); Prot Elec - Alpha1 0.3 g/dL (0.2-0.3); Prot Elec - Alpha2 0.7 g/dL (0.5-0.9); Prot Elec - Beta 1 0.4 g/dL (0.4-0.6); Prot Elec - Beta 2 0.4 g/dL (0.2-0.5); Prot Elec - Gamma 1.2 g/dL (0.8-1.7)
== END 2025-01-30 10:04 | disposition home or self-care (01) ==
LOC: HO.10HDL 10:03
PROVIDERS: Visit Provider Internal Medicine Endocrinology, Diabetes & Metabolism
DX: M81.0 Age-related osteoporosis without current pathological fracture (principal)
CPT/HCPCS: 84100; 84165; 86335

== ENCOUNTER 2025-04-06 09:37 | Outpatient (AMB) | payer BC, SELFPAY ==
--- NOTE | 2025-04-06 09:46 | MHC.PC.OV ---
Vital Signs 04/06/25 09:47 Height 5 ft 6.14 in Weight 134 lb 4 oz BMI 21.6 BP 120/60 Blood Pressure Location Lt brachial Position Sitting Pulse 60 Pulse Source Pulse Oximeter Temp 97.1 F Temp Source Temporal Artery Scan Pulse Oximetry (%) 97 Oxygen Delivery Method Room Air Intake Visit Reasons: 3 Month F/U Intake Note: Patient is here to follow up on Osteoporosis. Nitrogen Operator Required: No Histotechnologist: Not Required per policy Accompanied by: Self / Same As Patient Allergies No Known Allergies Allergy (Verified 04/06/25 10:03) Medication List - Last Reconciled 04/06/25 by Nery Marmolejo PA-C ascorbic acid (vitamin C) 1 g PO BID calcium citrate 250 mg PO QID cholecalciferol (vitamin D3) 25 mcg PO DAILY fluticasone propionate 50 mcg/actuation 1 spray intranasal BID cx-6-mod-epa-fish oil-vit D3 [id number] zv-au-kz-unit caps PO Tobacco use date assessed: 04/06/25 Dental Screening Dental Screen Date: 01/05/25 HPI 3 Month F/U HPI Details 64-year-old female with past medical history of osteoporosis last seen 12/2024 coming in for follow up.? At her last visit referral was placed to endocrinology for osteoporosis.? Seen by endocrinology 01/2025 initiated secondary workup for osteoporosis consider therapy. Presenting with joint pain, and routine health maintenance. Left sacroiliac joint pain, exacerbated by weather changes and relieved through rest, ice, and heat applications. Previous imaging indicated normal degenerative changes, with ibuprofen and Tylenol being used sparingly for inflammation. Additional mild lumbar arthritis was previously identified. Pain in this area is also intermittent and mainly activity-induced, with alleviation after rest. Patient reports anxiety stemming from work-related stress and family dynamics involving assisting with a grandson who has autism. Patient was evaluated for osteoporosis, with current management pending further testing. Alendronate has been deferred based on age considerations following the supervisor modern languages's assessment. 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 1. Little interest or pleasure in doing things: not at all 2. Feeling down, depressed, or hopeless: not at all 3. Trouble falling or staying asleep, or sleeping too much: not at all 4. Feeling tired or having little energy: not at all 5. Poor appetite or overeating: not at all 6. Feeling bad about yourself - or that you are a failure or have let yourself or your family down: not at all 7. Trouble concentrating on things, such as reading the newspaper or watching television: not at all 8. Moving or speaking so slowly that other people could have noticed. Or the opposite - being so fidgety or restless that you have been moving around a lot more than usual: not at all 9. Thoughts that you would be better off or of hurting yourself in some way: not at all Total score: 0 Depression Screening Interpretation: Negative Depression Screening Done: Yes Source: Developed by Drs. Shashi Springer, Yaneth Mcclellan, Andres Jimenes and colleagues, with an educational fletcher from [employer]. Thrive Questionnaire Date Thrive assessed: 01/05/25 I am a: Patient What is your living situation today?: I have a steady place to live Within the past 12 months, did the food you bought not last and you didn't have the money to get more?: Never true Within the past 12 months, did you worry whether your food would run out before you got money to buy more?: Never true Do you have trouble paying for medicines?: No Do you have trouble getting transportation to medical appointments?: No Do you have trouble paying your heating and electricity bill?: No Do you have trouble taking care of your child, family member or friend?: No Do you have trouble with day-to-day activities such as bathing, preparing meals, shopping, managing finances, etc.?: No Are you currently unemployed and looking for a job?: No Are you interested in more education?: No Please select the resources that you would like help with: None Currently or been in a relationship where the following occur: No concerns reported THRIVE Score: 0 AUDIT C Alcohol Use Questionnaire (AUDIT-C) 1. How often do you have a drink containing alcohol?: Never Total Score: 0 CATRACHO-7 AMB Questionnaire CATRACHO-7 Date CATRACHO - 7 assessed: 04/06/25 Feeling nervous, anxious, or on edge: 0 = Not at all Not being able to stop or control worryin = Not at all Worrying too much about different things: 0 = Not at all Trouble relaxin = Not at all Being so restless that it is hard to sit still: 0 = Not at all Becoming easily annoyed or irritable: 0 = Not at all Feeling afraid as if something awful might happen: 0 = Not at all Total CATRACHO-7 score (0-4 normal; 5-9 mild; 10-14 moderate; 15-21 severe): 0 Source: Developed by Drs. Shashi Springer, Yaneth Mcclellan, Andres Jimenes and colleagues, with an educational fletcher from [employer]. Review of Systems Const Denies body aches, Denies chills, Denies fever(s), Denies headache(s) and Denies poor appetite Eyes Reports no additional complaints ENT Denies dysphagia, Denies dizziness, Denies headache(s) and Denies odynophagia Card Denies chest pain, Denies syncope, Denies edema, Denies irregular heart rhythm, Denies lightheadedness and Denies dyspnea Resp Denies cough and Denies dyspnea GI Denies abdominal pain, Denies constipation, Denies dysphagia, Denies diarrhea, Denies nausea, Denies odynophagia and Denies vomiting Reports no additional complaints Musc Reports no additional complaints and Denies abnormal gait Skin/Breast Reports system reviewed and no additional complaints, except as documented Neuro Denies abnormal gait, Denies dizziness, Denies syncope and Denies headache(s) Psych Reports no additional complaints Physical exam (Primary Care) Vital Signs: Last Vital Signs Temp 97.1 F 04/06/25 09:47 Pulse 60 04/06/25 09:47 BP 120/60 04/06/25 09:47 Pulse Ox 97 04/06/25 09:47 Oxygen Delivery Method Room Air 04/06/25 09:47 BMI result Body Mass Index 21.6 Tobacco/Smoking Status: Tobacco use Status Tobacco use date assessed 04/06/25 04/06/25 09:47 Patient Tobacco Use Status Never used Tobacco 04/06/25 09:47 e-Cigarette/Vaping Use Never Used 04/06/25 09:47 PHQ-9: PHQ-9 Score PHQ-9: Total score 0 04/06/25 10:17 Depression Screening Interpretation: Negative Thrive Assessment: Date of Thrive Assessment Date Thrive assessed 01/05/25 04/06/25 09:47 Currently or been in a relationship where the following occur: No concerns reported Const General: cooperative, healthy appearing, comfortable and no acute distress Orientation/consciousness: patient oriented x3 HENMT Head: Yes normocephalic Ears: hearing grossly normal bilaterally General nose exam: Normal external nose present Eyes General: appearance normal, both eyes and all related structures Conjunctivae: conjunctivae normal Neck Neck: Yes full ROM and Yes no lymphadenopathy Resp Effort & Inspection: normal respiratory effort Auscultation: clear to auscultation bilaterally, no crackles, no rales, no rhonchi and no wheezes Cardio Rate: regular rate Rhythm: regular rhythm Skin General skin exam: no rashes or lesions noted Neuro General: patient oriented x3 Gait exam (Neuro): Normal gait present Extrem General: Yes normal to inspection, Yes full ROM and No edema Psych Affect: normal affect Attitude: cooperative Insight: Good insight present (Psych) Judgement: Good judgement present (Psych) Coding Level of Care Code Est Pt Level 3 (44914) Diagnoses Osteoporosis M81.0 Coccyx pain M53.3 Lumbar spondylosis M47.816 Assessment & Plan Assessment & Plan (1) Osteoporosis: Code(s): M81.0 - Age-related osteoporosis without current pathological fracture Category: Medical Plan: The patient is advised to continue with her calcium and vitamin D regimen, and to engage in non-strenuous physical activity to prevent falls and benefit bone health. She is currently working with endocrinology for secondary workup. (2) Coccyx pain: Code(s): M53.3 - Sacrococcygeal disorders, not elsewhere classified Category: Medical Plan: Discussed the option for pain management as imaging does suggest sacroiliitis patient declining referral today. Plan with conservative measurement using heating pads, Tylenol and ibuprofen as needed and physical therapy if requested. (3) Lumbar spondylosis: Code(s): M47.816 - Spondylosis without myelopathy or radiculopathy, lumbar region Category: Medical Plan: See above plan Plan Management focuses on alleviating dry eye symptoms, monitoring joint pain, and exploring potential interventions. Sacroiliac joint pain and mild lumbar arthritis are managed using conservative measures such as limited anti-inflammatory medications and physical applications, with acknowledgment of orthopedic consultation if symptoms persist. Ongoing monitoring and follow-up for osteoporosis are advised, following recent endocrine evaluation. Overall health maintenance includes routine monitoring with plans for a six-month follow-up appointment and further exploration of bone density testing location and methods. This note was constructed using voice recognition software. While every effort has been made to ensure accuracy and sandblast operator, still areas may have been included sometimes these areas may affect the content or meeting of the given symptoms. Total time spent caring for the patient today was 20 minutes. This includes time spent before the visit reviewing the chart, time spent during the visit, and time spent after the visit and documentation. Patient was informed and verbally consented to the use of an ambient scribe for clinic note documentation during this visit.
[2025-04-06 09:47] VITALS: BP 120/60; PULSE 60; TEMP 36.2; O2SAT 97; BMI 21.6
--- OUTSIDE RECORDS SUMMARY | 2025-04-06 09:52 | XMS_ITS | Clinical Summary ---
Author Organization [facility] Address [address] [place] [phone] Phone Care Team Providers Care Money Examiner Name Role Phone Nery Marmolejo Primary Care [...] EST Hospital Encounter [facility] at [address] [address] Encounter for screening mammogram for malignant neoplasm of breast Discharge Disposition: Home or Self Care from Last 3 Months Immunizations Name Administration Dates Next Due Tdap Tetanus diptheria acell ular pertussis (Boostrix; Adacel) 7yo and older 11/25/2023,02/18/2013 Surgical History Surgery Date Site/Laterality Comments OTHER SURGICAL HISTORY 1980s PROCEDURE: [place] LAPS ABD PRTM&OMENTUM DX W/WO SPEC BR/WA SPX; COMMENT: exploratory lap for infertility COLONOSCOPY 2012 PROCEDURE: [place] COLONOSCOPY FLX DX W/COLLJ SPEC WHEN PFRMD; [...] PM EDT Office Visit Internal Medicine - [place] [address] [facility] [address] [place] [address] Carlos Alberto Woodward MD [address] [facility] [address] [place] [address] Health Maintenance Due Date Last Done Comments Pneumococcal Vaccine: 50+ Years (1 of 1 - PCV) 2011 Zoster Vaccines (1 of 2) 2011 Cervical Cancer Screening: Pap Smear 12/10/2014 12/10/2011, 12/10/2011 Colorectal Cancer Screening: Colonoscopy 10/26/2022 Depression Screening 10/26/2022 HIV Screening 10/26/2022 Social Influencers of Health Screening 10/26/2022 COVID-19 Vaccine (3 - season) 2024 05/08/2021, 04/10/2021 Influenza Vaccine (Season Ended) 2025 Breast Cancer Screening 01/07/2027 01/07/20, 11/23/2023, 08/03/2022, Additional history exists Cholesterol Screening (Lipid Panel) 06/16/2027 06/16/2022 DTaP,Tdap,and Td Vaccines (3 - Td or Tdap) 11/25/2033 11/25/2023, 02/18/2013 Osteoporosis Screening (Bone Density Screening) 01/11/2034 01/11/2024, 07/15/2021, 06/13/2019 RSV Immunization Adult Patients (1 - 1-dose 75+ series) 2036 Hepatitis [...] age to complete this topic Meningococcal B Vaccine Aged Out No l onger eligible based on patient's age to complete [...] screening mammogram for malignant neoplasm of breast [facility] DEXA AXIAL SKELETON Routine 01/11/2024 5:18 [...] Signed Date: 01/11/2025 07:31 ET Workstation ID: [id number] Transcribed By: Self Edit Transcribed Date: 01/11/2025 [...] Signed Date: 01/11/2025 07:31 ET Workstation ID: [id number] Transcribed By: Self Edit Transcribed Date: 01/11/2025 07:27 ET us Dorothy Magdaleno MD IMG BI PROCEDURES Final Resu lt * SUE DEXA AXIAL SKELETON (01/11/2024 5:18 PM EST) Anatomical Region Laterality Modality Mammography 01/11/2024 9:27 AM EST Narrative 01/11/2024 5:18 PM EST [facility] Diagnostic Imaging Department [address] [place] [address] Patient: ??PARENT,LAUREN ?/Age/Sex: 1960 - 63 - F Unit#: ??[id number] ? Location/Status: ??SPDIMAM/REG CLI ? Mnemonic/Ordering Site: ??MAMDEXAAX/SPMAM Ordering Physician: ??DOROTHY MAGDALENO MD [facility] Dexa Axial Skeleton - 01/11/[address] Report Status:Signed History: Low estrogen state due to menopause. Tobacco user. Comparison: 07/15/21 Findings: Bone densitometry is performed utilizing dual energy x-ray absorptiometry (DXA) in the [employer] unit. The lumbar spine and proximal femora [...] 8.3 percent Hip 0.9 percent. IMPRESSION: Osteoporosis. [id number] Dictating Physician: ??ADEALIDA MELISSA MD Electronically Signed by: ??ADELAIDA MELISSA MD Dic Date/Time: ??01/11/241717 Sign date/Time: ??01/11/241717 Procedure Note Adelaida Melissa MD - 07/04/2024 [facility] Diagnostic Imaging Department [address] [place] [address] Patient: LAUREN BRAXTON /Age/Sex: 1960 - 63 - F Unit#: [id number] [facility] CLI [facility]emonic[facility] Ordering Physician: DOROTHY MAGDALENO MD [facility] Dexa Axial Skeleton - 01/11/24 - 0957 Report Status:Signed History: Low estrogen state due to menopause. Tobacco user. Comparison: 07/15/21 Findings: Bone densitometry is performed utilizing dual energy x-ray absorptiometry(DXA) in the [employer] App[employer] unit. The lumbar spine and proximal femora [...] Osteoporotic 8.3percent Hip 0.9 percent. IMPRESSION: Osteoporosis. [id number] Dictating Physician: ADELAIDA MELISSA MD Electronically Signed by: ADELAIDA MELISSA MD Dic Date/Time: 01/11/241717 Sign date/Time: 01/11/241717 Result [facility] Dorothy Magdaleno MD IMG BI PROCEDURES Final Resu lt * Lipid panel (06/16/2022) [facility] LDL/HDL Ratio 3 0 - 4 Triglycerides 122 0 - 150 mg/dL Cholesterol 196 0 - 200 mg/dL HDL 72 >=40 mg/dL LDL Cholesterol 100 0 - 100 mg/dL Blood Venous blood specimen / Unknown Result [facility] Historical Provider LAB BLOOD ORDERABLES Suzanna l Result * Hepatitis C Screening (03/19/2017) [facility] Hepatitis C Screening abstracted Result [facility] Historical Provider HEALTH MAINTENANCE Final Result * Cervical Cancer Screening: HPV (12/10/2011) [facility] Cervical Cancer Screening: HPV negative, abstracted Historical Provider HEALTH MAINTENANCE Final Result from Last 3 Months or Most Recently Relevant to Health Maintenance Insurance [facility] Care Teams Money Examiner Relationship Specialty Start Date End Date Nery Marmolejo PA [address] [place] [address], [address] [place] [address] PCP - General 01/05/25
== END 2025-04-06 10:21 | disposition home or self-care (01) ==
DX: M81.0 Age-related osteoporosis without current pathological fracture (principal); M53.3 Sacrococcygeal disorders, not elsewhere classified; M47.816 Spondylosis without myelopathy or radiculopathy, lumbar region

== ENCOUNTER → 2025-04-06 09:37 | Outpatient (BNVA) | payer BC, SELFPAY | DX: Z13.89 Encounter for screening for other disorder (principal) ==

== ENCOUNTER 2025-07-24 11:23 | Outpatient (REF) | payer BC, SELFPAY ==
[2025-07-24 11:27] LABS: Total Volume 24 Hour Urine 800 mL
[2025-07-24 12:13] LABS: Creatinine, mg/dL 86.88
--- OUTSIDE RECORDS SUMMARY | 2025-07-24 14:06 | XMS_ITS | Clinical Summary ---
Author Organization [facility] Address [address] [place] [phone] Phone Care Team Providers Care Shared Services Representative Name Role Phone Nery Marmolejo Primary Care Provider [phone] Allergies No known active allergies Medications cephalexin [...] Date Site/Laterality Comments OTHER SURGICAL HISTORY PROCEDURE: [place] LAPS ABD PRTM&OMENTUM DX W/WO SPEC BR/WA SPX; COMMENT: exploratory lap for infertility COLONOSCOPY 2012 PROCEDURE: [place] COLONOSCOPY FLX DX W/COLLJ SPEC WHEN PFRMD; [...] 01/07/2025 8:22 AM EST Plan of Treatment Health Maintenance Due Date Last Done Comments Pneumococcal Vaccine: 50+ Years (1 of 1 - PCV) 2011 Zoster Vaccines (1 of 2) 2011 Cervical Cancer Screening: Pap Smear 12/10/2014 12/10/2011, 12/10/2011 Colorectal Cancer Screening: Colonoscopy 10/26/2022 HIV Screening 10/26/2022 Social Influencers of Health Screening 10/26/2022 Depression Screening 11/16/2024 COVID-19 Vaccine (3 - 2024- season) 2025 05/08/2021, 04/10/2021 Influenza Vaccine (#1) 2025 Breast Cancer Screening 01/07/2027 01/07/20, 11/23/2023, [...] screening mammogram for malignant neoplasm of breast [facility] DEXA AXIAL SKELETON Routine 01/11/2024 5:18 [...] AM EST No mammographic evidence of malignancy. No suspicious interval change. A negative mammogram in the presence of a clinically suspicious palpable abnormality does not preclude the possibility of malignancy or alter the indications for biopsy. ASSESSMENT: BI-RADS 1: NEGATIVE RECOMMENDATION(S): 1: Routine screening mammogram BILATERAL in 1 year. -------- FINAL REPORT -------- Dictated By: Syed Sigala Dictated Date: 01/11/2025 07:27 ET Assigned Physician: Syed Sigala Reviewed and Electronically Signed By: Syed Sigala Signed Date: 01/11/2025 07:31 ET Workstation ID: [id number] Transcribed By: Self Edit Transcribed Date: 01/11/2025 07:27 ET Narrative 01/11/2025 7:31 AM EST EXAM: SCREENING MAMMOGRAPHY, BILATERAL HISTORY: SCREENING. No additional history. COMPARISON: 11/21/2023, 08/02/2022, 07/27/2021, 06/13/2020 TECHNIQUE: Synthesized CC and MLO projections of each breast. Tomosynthesis of each breast in the CC and MLO projections. ADDITIONAL IMAGING: None Computer-aided detection was employed with the [employer] AI 3-D. TISSUE DENSITY: There are scattered areas of fibroglandular density. (BI-RADS category B) FINDINGS: RIGHT BREAST: No suspicious mass. No suspicious calcification. No distortion. No additional suspicious right breast findings LEFT BREAST: No suspicious mass. No suspicious calcification. No distortion. No additional suspicious left breast findings Procedure Note Syed Sigala MD - 01/11/2025 EXAM: SCREENING MAMMOGRAPHY, BILATERAL HISTORY: SCREENING. No additional history. COMPARISON: 11/21/2023, 08/02/2022, 07/27/2021, 06/13/2020 TECHNIQUE: Synthesized CC and MLO projections of each breast.Tomosynthesis of each breast in the CC and MLO projections. ADDITIONAL IMAGING: None Computer-aided detection was employed with the [employer] AI 3-D. TISSUE DENSITY: There are scattered [...] Signed Date: 01/11/2025 07:31 ET Workstation ID: [id number] Transcribed By: Self Edit Transcribed Date: 01/11/2025 07:27 ET us Dorothy Magdaleno MD IMG BI PROCEDURES Final Resu lt * ALLAN DEXA AXIAL SKELETON (01/11/2024 5:18 PM EST) Anatomical Region Laterality Modality Mammography 01/11/2024 9:27 AM EST Narrative 01/11/2024 5:18 PM EST [facility] Diagnostic Imaging Department [address] [place] [address] Patient: IRAISLAUREN Hernandez./Age/Sex: 1960 - 63 - F Unit#: [id number] [facility] Ordering Physician: DOROTHY MAGDALENO MD [facility] Dexa Axial Skeleton - 01/11/24 - 7683 Report Status:Signed History: Low estrogen state due to menopause. Tobacco user. Comparison: 07/15/21 Findings: Bone densitometry is performed utilizing dual energy x-ray absorptiometry (DXA) in the [employer] unit. The lumbar spine and proximal femora [...] previous study. The detailed DEXA report will be mailed to the referring physician's office. DualFemur FRAX: 10-year Probability of Fracture: Major Osteoporotic 8.3 percent Hip 0.9 percent. IMPRESSION: Osteoporosis. [id number] Dictating Physician: ADELAIDA MELISSA MD Electronically Signed by: ADELAIDA MELISSA MD Dic Date/Time: 01/11/241717 Sign date/Time: 01/11/241717 Procedure Note Adelaida Melissa MD - 07/04/2024 [facility] Diagnostic Imaging Department [address] [place] [address] Patient: LAUREN BRAXTON /Age/Sex: 1960 - 63 - F Unit#: [id number] Location/Status: SPDIMA/REG CLI [facility] Ordering Physician: DOROTHY MAGDALENO MD [facility] Dexa Axial Skeleton - 01/11/24956 Report Status:Signed History: Low estrogen state due to menopause. Tobacco user. Comparison: 07/15/21 Findings: Bone densitometry is performed utilizing dual energy x-ray absorptiometry(DXA) in the [employer] unit. The lumbar spine and proximal femora [...] Osteoporotic 8.3percent Hip 0.9 percent. IMPRESSION: Osteoporosis. 39472 Dictating Physician: ADELAIDA MELISSA MD Electronically Signed by: ADELAIDA MELISSA MD Dic Date/Time: 01/11/241717 Sign date/Time: 01/11/241717 Result [facility] Dorothy Magdaleno MD IMG BI PROCEDURES Final Resu lt * Lipid panel (06/16/2022) [facility] LDL/HDL Ratio 3 0 - 4 Triglycerides 122 0 - 150 mg/dL Cholesterol 196 0 - 200 mg/dL HDL 72 >=40 mg/dL LDL Cholesterol 100 0 - 100 mg/dL Blood Venous blood specimen / Unknown Result [facility] Historical Provider LAB BLOOD ORDERABLES Suzanna l Result * Hepatitis C Screening (03/19/2017) [facility] Hepatitis C Screening abstracted Result [facility] Historical Provider HEALTH MAINTENANCE Final Result * Cervical Cancer Screening: HPV (12/10/2011) [facility] Cervical Cancer Screening: HPV negative, abstracted Result [facility] Historical Suhas ARIZMENDI HEALTH MAINTENANCE Final Result from Last 3 Months or Most Recently Relevant to Health Maintenance Insurance [facility] Care Teams Shared Services Representative Relationship Specialty Start Date End Date Nery Marmolejo PA [address] [place] [address], [address] [place] [address] PCP - General 01/05/25
[2025-07-25 19:24] LABS: Calcium/Creatinine Ratio 272 mg/g creat (30-275); Creatinine 24Hr Urine 0.66 g/24 h (0.50-2.15)
== END 2025-07-24 11:24 | disposition home or self-care (01) ==
LOC: HO.LNP 11:23
PROVIDERS: Visit Provider Internal Medicine Endocrinology, Diabetes & Metabolism
DX: M81.0 Age-related osteoporosis without current pathological fracture (principal)
CPT/HCPCS: 82340; 82570

== ENCOUNTER 2025-07-31 11:23 | Outpatient (AMB) | payer BC, SELFPAY ==
--- NOTE | 2025-07-31 11:24 | A.OFFVIS_ITS ---
Vital Signs 07/31/25 11:30 Height 5 ft 7.52 in Weight 134 lb 0.657 oz BMI 20.7 BP 102/64 Blood Pressure Location Rt brachial Position Sitting Pulse 78 Pulse Source Pulse Oximeter Pulse Oximetry (%) 98 Oxygen Delivery Method Room Air Intake Visit Reasons: Osteoporosis Intake Note: Patient present today for Osteoporosis follow up. 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 The patient is a 64-year-old female presenting with osteoporosis. She was diagnosed with osteoporosis in 2020 and treated with Fosamax but discontinued due to anxiety. No further osteoporosis medications have been taken since. She underwent follow-up bone density testing in 2021 and 2023, which reflected a decline in bone health, as characterized by a T-score of approximately -3. An inch of height loss has been noted. The patient denies any osteoporotic fractures and manages her condition with calcium and vitamin D supplementation. She is incorporating dietary modifications to support bone health, despite admitting to limited engagement in weight-bearing exercises, alleviated partially through vibration plate usage at home. Has several servings of dietary calcium per day in the form of cheese, broccoli , salmon . Takes Calcium supplement 1000mg daily in divided doses. Takes 1000 IU of Vitamin D daily. Denies ever using PPI, anticoagulant, antiepileptic or glucocorticoid medi cation. Not Does weight bearing exercise . 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 Limited engagement in weight-bearing exercise due to recent personal losses. Incorporates vibration plate exercises at home when possible. Previously practiced squats. 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 UTD on dental cleanings and sees dentist every 6 months. No planned upcoming dental work or extractions. No smoking - ex tobacco use 20 yrs ago . No ETOH DXA dated 01/11/24 : T-score of -3.0 Labs: Secondary workup negative The patient is a 64-year-old female presenting with osteoporosis management. She has a T-score of negative 3, which is at the threshold for considering anabolic therapy to build bone density. She has not experienced any fractures in the past, which influences the decision-making process regarding treatment options. The patient is considering various treatment options, including anabolic therapies such as Evenity, Tymlos, and Forteo, which are known to build bone density. The patient is also engaging in resistance training and using a vibrating plate as part of her non-pharmacological interventions to improve bone health. She is taking calcium and vitamin D supplements to support bone health. The patient has expressed concerns about potential side effects of medications and is weighing the benefits of pharmacological treatment against her current regimen. She has a history of falls, which raises concerns about future fracture risk, although she has not fallen recently. 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 Secondary workup negativeq We will talk to the patient about potentially starting anabolic therapy with the Evenity, Tymlos or Prolia considering very low bone density and high risk for fracture and age of patient. This would be optimal followed by anti resorptive therapy. 1. Osteoporosis The patient has a T-score of negative 3, indicating osteoporosis. The discussion focused on the potential use of anabolic therapies such as Evenity, Tymlos, and Forteo to build bone density. The patient is also considering non- pharmacological interventions, including resistance training and the use of a vibrating plate. Calcium and vitamin D supplementation are part of her current regimen. The patient expressed concerns about medication side effects and is weighing the benefits of treatment against her current regimen. A follow-up bone density test is planned i Jd pardo monitor progress. During the consultation, I discussed with the patient the management of her osteoporosis, focusing on the potential use of anabolic therapies such as Evenity, Tymlos, and Forteo. We reviewed the benefits and potential side effects of these medications, emphasizing the importance of building bone density. I also highlighted the role of non-pharmacological interventions, including resistance training and the use of a vibrating plate. The patient was advised to continue calcium and vitamin D supplementation. We discussed the importance of monitoring bone density and the option of a follow-up test to assess progress. The patient was encouraged to consider her comfort with the treatment options and to reach out if she decides to proceed with any therapy. - Continue taking calcium and vitamin D supplements as directed. - Engage in resistance training and use a vibrating plate to support bone health. - Consider the benefits and side effects of potential osteoporosis medications and decide on a treatment plan that feels comfortable. - Schedule a follow-up bone density test to monitor progress. The patient had an opportunity to ask questions regarding treatment plan. The patient expressed understanding and agreement with the above treatment plan. Patient was informed and verbally consented to the use of an ambient scribe for clinic note documentation during this visit. T Coding Level of Care Code Est Pt Level 3 (41751) Diagnoses Osteoporosis M81.0
[2025-07-31 11:30] VITALS: BP 102/64; PULSE 78; O2SAT 98; BMI 20.7
--- OUTSIDE RECORDS SUMMARY | 2025-07-31 15:34 | XMS_ITS | Clinical Summary ---
Author Organization [facility] Address [address] [place] [phone] Phone Care Team Providers Care Checkerer Hand Name Role Phone Nery Marmolejo Primary Care Provider [phone] Allergies No known active allergies Medications cephalexin [...] Date Site/Laterality Comments OTHER SURGICAL HISTORY PROCEDURE: [place] LAPS ABD PRTM&OMENTUM DX W/WO SPEC BR/WA SPX; COMMENT: exploratory lap for infertility COLONOSCOPY 2012 PROCEDURE: [place] COLONOSCOPY FLX DX W/COLLJ SPEC WHEN PFRMD; [...] screening mammogram for malignant neoplasm of breast [facility] DEXA AXIAL SKELETON Routine 01/11/2024 5:18 PM [...] Signed Date: 01/11/2025 07:31 ET Workstation ID: [id number] Transcribed By: Self Edit Transcribed Date: 01/11/2025 07:27 ET Narrative 01/11/2025 7:31 AM EST EXAM: SCREENING MAMMOGRAPHY, BILATERAL HISTORY: SCREENING. No additional history. COMPARISON: 11/21/2023, 08/02/2022, 07/27/2021, 06/13/2020 TECHNIQUE: Synthesized CC and MLO projections of each breast. Tomosynthesis of each breast in the CC and MLO projections. ADDITIONAL IMAGING: None Computer-aided detection was employed with the [employer] AI 3-D. TISSUE DENSITY: There are scattered [...] None Computer-aided detection was employed with the [employer]ign[employer] AI 3-D. TISSUE DENSITY: There are scattered [...] Signed Date: 01/11/2025 07:31 ET Workstation ID: [id number] Transcribed By: Self Edit Transcribed Date: 01/11/2025 07:27 ET us Dorothy Magdaleno MD IMG BI PROCEDURES Final Resu lt * ALLAN DEXA AXIAL SKELETON (01/11/2024 5:18 PM EST) Anatomical Region Laterality Modality Mammography 01/11/2024 9:27 AM EST Narrative 01/11/2024 5:18 PM EST [facility] Diagnostic Imaging Department [address] [place] [address] Patient: IRAISLAUREN Hernandez./Age/Sex: 1960 - 63 - F Unit#: [id number] [facility]ing [facility] Ordering Physician: DOROTHY MAGDALENO MD [facility] Dexa Axial Skeleton - 01/11/24 - 0670 Report Status:Signed History: Low estrogen state due to menopause. Tobacco user. Comparison: 07/15/21 Findings: Bone densitometry is performed utilizing dual energy x-ray absorptiometry (DXA) in the [employer] unit. The lumbar spine and proximal femora [...] 8.3 percent Hip 0.9 percent. IMPRESSION: Osteoporosis. 25472 Dictating Physician: ADELAIDA MELISSA MD Electronically Signed by: ADELAIDA MELISSA MD Dic Date/Time: 01/11/241717 Sign date/Time: 01/11/241717 Procedure Note Adelaida Melissa MD - 07/04/2024 [facility] Diagnostic Imaging Department [address] [place] [address] Patient: LAUREN BRAXTON /Age/Sex: 1960 - 63 - F Unit#: [id number] Location/Status: SPDIMA/REG CLI Mnemonic/Ordering [facility] Ordering Physician: DOROTHY MAGDALENO MD [facility] Dexa Axial Skeleton - 01/11/24956 Report Status:Signed History: Low estrogen state due to menopause. Tobacco user. Comparison: 07/15/21 Findings: Bone densitometry is performed utilizing dual energy x-ray absorptiometry(DXA) in the [employer] unit. The lumbar spine and proximal femora [...] Osteoporotic 8.3percent Hip 0.9 percent. IMPRESSION: Osteoporosis. 80752 Dictating Physician: ADELAIDA MELISSA MD Electronically Signed by: ADELAIDA MELISSA MD Dic Date/Time: 01/11/241717 Sign date/Time: 01/11/241717 Result [facility] Dorothy Magdaleno MD IMG BI PROCEDURES Final Resu lt * Lipid panel (06/16/2022) [facility] LDL/HDL Ratio 3 0 - 4 Triglycerides 122 0 - 150 mg/dL Cholesterol 196 0 - 200 mg/dL HDL 72 >=40 mg/dL LDL Cholesterol 100 0 - 100 mg/dL Blood Venous blood specimen / Unknown Result [facility] Historical Provider LAB BLOOD ORDERABLES Suzanna l Result * Hepatitis C Screening (03/19/2017) [facility] Hepatitis C Screening abstracted Result [facility] Historical Provider HEALTH MAINTENANCE Final Result * Cervical Cancer Screening: HPV (12/10/2011) [facility] Cervical Cancer Screening: HPV negative, abstracted Result [facility] Historical [facility] ARIZMENDI HEALTH MAINTENANCE Final Result from Last 3 Months or Most Recently Relevant to Health Maintenance Insurance [facility] Care Teams Checkerer Hand Relationship Specialty Start Date End Date Nery Marmolejo PA [address] [place] [address], [address] [place] [address] PCP - General 01/05/25
== END 2025-07-31 12:07 | disposition home or self-care (01) ==
LOC: HO.ENCR 11:24
PROVIDERS: Visit Provider Internal Medicine Endocrinology, Diabetes & Metabolism
DX: M81.0 Age-related osteoporosis without current pathological fracture (principal)
CPT/HCPCS: 99213

== ENCOUNTER 2025-10-31 10:08 | Outpatient (AMB) | payer BC, SELFPAY ==
--- NOTE | 2025-10-31 10:15 | A.OFFPC_ITS ---
Vital Signs 10/31/25 10:17 Height 5 ft 5.75 in Weight 131 lb 6 oz BMI 21.4 BP 108/68 Blood Pressure Location Rt brachial Position Sitting Respiration 16 Pulse 66 Pulse Source Pulse Oximeter Temp 97.1 F Temp Source Temporal Artery Scan Pulse Oximetry (%) 99 Intake Visit Reasons: annual exam Intake Note: Patient is here to follow up on Osteoporosis. Line Construction Engineer Required: No Venetian Blind Installer: Not Required per policy Accompanied by: Self / Same As Patient Allergies No Known Allergies Allergy (Verified 10/31/25 10:28) Medication List - Last Reconciled 10/31/25 by Nery Marmolejo PA-C ascorbic acid (vitamin C) 1 g PO BID calcium citrate 250 mg PO QID cholecalciferol (vitamin D3) 25 mcg PO DAILY mv-5-kei-epa-fish oil-vit D3 [phone] ti-ta-td-unit caps PO Tobacco use date assessed: 10/31/25 Fall risk assessment: No Falls in past year Dental Screening Dental Screen Date: 10/31/25 Did you have a dental visit in the last 12 months?: Yes Did you have a dental problem in the last 6 months where you did not have access to dental care?: No Was dental information given to patient?: Patient has dentist HPI annual exam HPI Details 64-year-old female with past medical his tory of osteoporosis last seen 03/2025 coming in for annual exam. In review of the notes, patient was seen by endo 07/2025 continued on vitamin D and calcium and repeat bone density. Presenting for a follow-up visit. She reports a long-standing history of pain in her back and coccyx area following a fall down basement stairs years ago. Associated with this, she experiences slight tingling and numbness in her toes upon waking, particularly when lying on her back, which resolves after getting up. Her last colonoscopy was some time ago but less than 10 years, and was negative for polyps. Her father had a history of colon cancer and colitis, requiring an ileostomy. eye doctor: due for appt pap smear: 11/2025 mammo: 11/2024 DEXA: 12/2023 colonoscopy: UTD vaccines: UTD declines flu PFSH Medical History Sacroiliac joint pain Surgical History History of laparoscopy Social History Housing: House Alcohol intake: never Patient Tobacco Use Status: Never used Tobacco e-Cigarette/Vaping Use: Never Used Second Hand Smoke Exposure: No service: No Current occupational status: employed Current occupation: [employer] Cognitive needs: No Hearing needs: No Vision needs: Yes (Glasses) Questionnaire PHQ-9 Over the last 2 weeks, how often have you been bothered by any of the following problems? 1. Little interest or pleasure in doing things: not at all 2. Feeling down, depressed, or hopeless: not at all 3. Trouble falling or staying asleep, or sleeping too much: not at all 4. Feeling tired or having little energy: not at all 5. Poor appetite or overeating: not at all 6. Feeling bad about yourself - or that you are a failure or have let yourself or your family down: not at all 7. Trouble concentrating on things, such as reading the newspaper or watching television: not at all 8. Moving or speaking so slowly that other people could have noticed. Or the opposite - being so fidgety or restless that you have been moving around a lot more than usual: not at all 9. Thoughts that you would be better off or of hurting yourself in some way: not at all Total score: 0 Depression Screening Interpretation: Negative Depression Screening Done: Yes Source: Developed by Drs. Shashi Springer, Yaneth Mcclellan, Andres Jimenes and colleagues, with an educational fletcher from [employer]. Thrive Questionnaire Date Thrive assessed: 10/31/25 I am a: Patient What is your living situation today?: I have a steady place to live Within the past 12 months, did the food you bought not last and you didn't have the money to get more?: Never true Within the past 12 months, did you worry whether your food would run out before you got money to buy more?: Never true Do you have trouble paying for medicines?: No Do you have trouble getting transportation to medical appointments?: No Do you have trouble paying your heating and electricity bill?: No Do you have trouble taking care of your child, family member or friend?: No Do you have trouble with day-to-day activities such as bathing, preparing meals, shopping, managing finances, etc.?: No Are you currently unemployed and looking for a job?: No Are you interested in more education?: No Please select the resources that you would like help with: None Currently or been in a relationship where the following occur: No concerns reported THRIVE Score: 0 AUDIT C Alcohol Use Questionnaire (AUDIT-C) 1. How often do you have a drink containing alcohol?: Never Total Score: 0 CATRACHO-7 AMB Questionnaire CATRACHO-7 Date CATRACHO - 7 assessed: 10/31/25 Feeling nervous, anxious, or on edge: 0 = Not at all Not being able to stop or control worryin = Not at all Worrying too much about different things: 0 = Not at all Trouble relaxin = Not at all Being so restless that it is hard to sit still: 0 = Not at all Becoming easily annoyed or irritable: 0 = Not at all Feeling afraid as if something awful might happen: 0 = Not at all Total CATRACHO-7 score (0-4 normal; 5-9 mild; 10-14 moderate; 15-21 severe): 0 Source: Developed by Drs. Shashi Springer, Yaneth Mcclellan, Andres Jimenes and colleagues, with an educational fletcher from [employer]. Review of Systems Const Denies body aches, Denies chills, Denies fatigue, Denies fever(s), Denies headache(s) and Denies poor appetite Eyes Reports no additional complaints ENT Denies dysphagia, Denies dizziness, Denies headache(s) and Denies odynophagia Card Denies chest pain, Denies syncope, Denies edema, Denies irregular heart rhythm, Denies lightheadedness and Denies dyspnea Resp Denies cough and Denies dyspnea GI Denies abdominal pain, Denies constipation, Denies dysphagia, Denies diarrhea, Denies nausea, Denies odynophagia and Denies vomiting Reports no additional complaints Musc Reports no additional complaints and Denies abnormal gait Skin/Breast Reports system reviewed and no additional complaints, except as documented Neuro Denies abnormal gait, Denies dizziness, Denies syncope and Denies headache(s) Psych Reports no additional complaints Endo Denies fatigue Physical exam (Primary Care) Vital Signs: Last Vital Signs Temp 97.1 F 10/31/25 10:17 Pulse 66 10/31/25 10:17 Resp 16 10/31/25 10:17 BP 108/68 10/31/25 10:17 Pulse Ox 99 10/31/25 10:17 BMI result Body Mass Index 21.4 Tobacco/Smoking Status: Tobacco use Status Tobacco use date assessed 10/31/25 10/31/25 10:26 Patient Tobacco Use Status Never used Tobacco 10/31/25 10:26 e-Cigarette/Vaping Use Never Used 10/31/25 10:26 PHQ-9: PHQ-9 Score PHQ-9: Total score 0 10/31/25 10:28 Depression Screening Interpretation: Negative Thrive Assessment: Date of Thrive Assessment Date Thrive assessed 10/31/25 10/31/25 10:26 Currently or been in a relationship where the following occur: No concerns reported Const General: cooperative, healthy appearing, comfortable and no acute distress Orientation/consciousness: patient oriented x3 HENMT Head: Yes normocephalic Ears: hearing grossly normal bilaterally, external ears normal, TM's normal bilaterally and Abnormal EAC present excessive cerumen bilateral General nose exam: Normal external nose present Face and sinus: Yes normal facial exam and Yes sinuses nontender Mouth: Normal oral and palatal mucosa present and tongue normal Throat: Yes posterior oropharynx normal Eyes General: appearance normal, both eyes and all related structures Conjunctivae: conjunctivae normal Pupils: Equal, round and reactive pupils present EOM: EOMs intact bilaterally and No Nystagmus present Neck Neck: Yes normal visual inspection, Yes full ROM and Yes no lymphadenopathy Chest Chest palpation & inspection: normal inspection of the chest Resp Effort & Inspection: normal respiratory effort Auscultation: clear to auscultation bilaterally, no crackles, no rales, no rhonchi, no wheezes and breath sounds present Cardio Rate: regular rate Rhythm: regular rhythm Peripheral pulses: radial pulses present and dorsalis pedis present GI Inspection: Yes normal to inspection and No Abdominal wall edema Palpation (GI): Soft to palpation, not firm and nontender Auscultation: normal bowel sounds Rectal Exam - Female: deferred General: Yes no CVA tenderness Back/Spine/Pelvis Back: no CVA tenderness Skin General skin exam: no rashes or lesions noted Neuro General: patient oriented x3 Cranial nerves: Yes Equal, round and reactive pupils present, Yes Midline tongue present, Yes Ability to bilaterally elevate shoulders present and No Nystagmus present Gait exam (Neuro): Normal gait present Extrem General: Yes normal to inspection, Yes full ROM, No no pedal edema and No edema Psych Speech and movement: Normal speech and movement present Affect: normal affect Insight: Good insight present (Psych) Judgement: Good judgement present (Psych) Coding Level of Care Code Est Pt Prev Care 40-64y(46410) Diagnoses Annual physical exam Z00.00 Osteoporosis M81.0 Lumbar spondylosis M47.816 Cerumen impaction H61.20 Assessment & Plan Assessment & Plan (1) Annual physical exam: Code(s): Z00.00 - Encounter for general adult medical examination without abnormal findings Category: Medical Plan: Patient is up to date on all recommended routine screenings and vaccinations for her age. She declines the flu shot today. I did order for updated blood work and plan to have that completed prior to next visit. Healthy diet and regular exercise is encouraged. Plan to follow up in 6 months or sooner as needed or pending blood work evaluation (2) Osteoporosis: Code(s): M81.0 - Age-related osteoporosis without current pathological fracture Category: Medical Plan: Continue to follow with endocrinology and continue on Vitamin D supplement with Calcium. (3) Lumbar spondylosis: Code(s): M47.816 - Spondylosis without myelopathy or radiculopathy, lumbar region Category: Medical Plan: The patient's intermittent numbness and tingling in her toes is likely positional, possibly related to underlying arthritis in her back. Since the symptoms are transient and not worsening, no further imaging such as an MRI is indicated at this time and the plan is to monitor. She will reach out if symptoms become more persistent or severe (4) Cerumen impaction: Code(s): H61.20 - Impacted cerumen, unspecified ear Category: Medical Plan: Use Debrox as needed and follow up in the office for routine ear cleanings as needed Plan This note was constructed using voice recognition software. While every effort has been made to ensure accuracy and service crew leader, still areas may have been included sometimes these areas may affect the content or meeting of the given symptoms. Total time spent caring for the patient today was 30 minutes. This includes time spent before the visit reviewing the chart, time spent during the visit, and time spent after the visit and documentation. Patient was informed and verbally consented to the use of an ambient scribe for clinic note documentation during this visit. Orders: Orders Vitamin B12 and Folate Today Z13.21 - Encounter for screening for nutritional disorder Comprehensive Met. Panel Today M81.0 - Age-related osteoporosis without current pathological fracture, Z00.00 - Encounter for general adult medical examination without abnormal findings Complete Blood Count Auto Diff Today M81.0 - Age-related osteoporosis without current pathological fracture, Z13.0 - Encounter for screening for diseases of the blood and blood-forming organs and certain disorders involving the immune mechanism UA CC w/rflx Micro + Cult Today R35.89 - Other polyuria TSH reflex Free T4 Today Z13.29 - Encounter for screening for other suspected endocrine disorder Vitamin D 25-OH Total Today Z13.21 - Encounter for screening for nutritional disorder Lipid Panel Today Z13.220 - Encounter for screening for lipoid disorders
[2025-10-31 10:17] VITALS: BP 108/68; PULSE 66; RESP 16; TEMP 36.2; O2SAT 99; BMI 21.4
--- OUTSIDE RECORDS SUMMARY | 2025-10-31 12:33 | XMS_ITS | Clinical Summary ---
Author Organization 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 Anxiety state 01/15/2007 Immunizations Immunization Administration Dates Next Due Tdap Tetanus diptheria acell ular pertussis (Boostrix; Adacel) 7yo and older 11/25/2023,02/18/2013 Surgical History Surgery Date Site/Laterality Comments OTHER SURGICAL HISTORY PROCEDURE: MD LAPS ABD PRTM&OMENTUM DX W/WO SPEC BR/WA SPX; COMMENT: exploratory lap for infertility COLONOSCOPY 2012 PROCEDURE: MD COLONOSCOPY FLX DX W/COLLJ SPEC WHEN PFRMD; [...] Years Used Date Smoking Tobacco: Former Cigarettes 1 Q uit: 02/18/2001 Smokeless Tobacco: Never Alcohol [...] Health Maintenance Due Date Last Done Comments Colorectal Cancer Screening: Colonoscopy 1960 Pneumococcal Vaccine: 50+ Years (1 of 1 - PCV) 2011 Zoster Vaccines (1 of 2) 2011 Cervical Cancer Screening: Pap Smear 12/10/2014 12/10/2011 HIV Screening 10/26/2022 Social Influencers of Health [...] screening mammogram for malignant neoplasm of breast [facility] DEXA AXIAL SKELETON Routine 01/11/2024 5:18 PM EST Age-related osteoporosis without current pathological fracture LIPID PANEL Routine 06/16/2022 HEPATITIS C SCREENING Routine 03/19/2017 PAP SMEAR Routine 12/10/2011 from Last 3 Months or [...] Signed Date: 01/11/2025 07:31 ET Workstation ID: [id number] Transcribed By: Self Edit Transcribed Date: 01/11/2025 07:27 ET Narrative 01/11/2025 7:31 AM EST EXAM: SCREENING MAMMOGRAPHY, BILATERAL HISTORY: SCREENING. No additional history. COMPARISON: 11/21/2023, 08/02/2022, 07/27/2021, 06/13/2020 TECHNIQUE: Synthesized CC and MLO projections of each breast. Tomosynthesis of each breast in the CC and MLO projections. ADDITIONAL IMAGING: None Computer-aided detection was employed with the [employer] AI 3-D. TISSUE DENSITY: There are scattered [...] None Computer-aided detection was employed with the [employer] AI 3-D. TISSUE DENSITY: There are scattered [...] Signed Date: 01/11/2025 07:31 ET Workstation ID: [id number] Transcribed By: Self Edit Transcribed Date: 01/11/2025 07:27 ET us Dorothy Magdaleno MD IMG BI PROCEDURES Final Resu lt * [facility] DEXA AXIAL SKELETON (01/11/2024 5:18 PM EST) Anatomical Region Laterality Modality Mammography 01/11/2024 9:27 AM EST Narrative 01/11/2024 5:18 PM EST [facility] Diagnostic Imaging Department [address] [place] [address] Patient: LAUREN BRAXTON /Age/Sex: 1960 - 63 - F Unit#: [id number] Location/Status: [facility] [place] [facility] CLI [facility] Ordering Physician: DOROTHY MAGDALENO MD [facility] Dexa Axial Skeleton - 01/11/2433 Report Status:Signed History: Low estrogen state due to menopause. Tobacco user. Comparison: 07/15/21 Findings: Bone densitometry is performed utilizing dual energy x-ray absorptiometry (DXA) in the [employer] unit. The lumbar spine and proximal femora [...] 8.3 percent Hip 0.9 percent. IMPRESSION: Osteoporosis. [id number] Dictating Physician: ADELAIDA MELISSA MD Electronically Signed by: ADELAIDA MELISSA MD Dic Date/Time: 01/11/241717 Sign date/Time: 01/11/241717 Procedure Note Adelaida Melissa MD - 07/04/2024 [facility] Diagnostic Imaging Department [address] [place] [address] Patient: LAUREN BRAXTON /Age/Sex: 1960 - 63 - F Unit#: [id number] [facility] Ordering Physician: DOROTHY MAGDALENO MD [facility] Dexa Axial Skeleton - 01/11/2485 Report Status:Signed History: Low estrogen state due to menopause. Tobacco user. Comparison: 07/15/21 Findings: Bone densitometry is performed utilizing dual energy x-ray absorptiometry(DXA) in the [facility] unit. The lumbar spine and proximal femora [...] Osteoporotic 8.3percent Hip 0.9 percent. IMPRESSION: Osteoporosis. [id number] Dictating Physician: ADELAIDA MELISSA MD Electronically Signed by: ADELAIDA MELISSA MD Dic Date/Time: 01/11/241717 Sign date/Time: 01/11/241717 Dorothy Magdaleno MD IMG BI PROCEDURES Final Resu lt * Lipid panel (06/16/2022) [facility] LDL/HDL Ratio 3 0 - 4 Triglycerides 122 0 - 150 mg/dL Cholesterol 196 0 - 200 mg/dL HDL 72 >=40 mg/dL LDL Cholesterol 100 0 - 100 mg/dL Blood Venous blood specimen / Unknown Historical [facility] BLOOD ORDERABLES Suzanna l Result * Hepatitis C Screening (03/19/2017) [facility] Hepatitis C Screening abstracted Historical Provider HEALTH MAINTENANCE Final Result * Pap Smear (12/10/2011) [facility] Pap smear negative, abstracted Historical [facility] HEALTH MAINTENANCE Final Result from Last 3 Months or Most Recently Relevant to Health Maintenance Insurance [facility] Care Teams Hardwood Floor Installation Helper Relationship Specialty Start Date End Date Nery Marmolejo PA [address] [place] [address], [address] [place] [address] PCP - General 01/05/25
== END 2025-10-31 11:07 | disposition home or self-care (01) ==
LOC: HO.HMCH 10:09
DX: Z00.00 Encounter for general adult medical examination without abnormal findings (principal); M81.0 Age-related osteoporosis without current pathological fracture; M47.816 Spondylosis without myelopathy or radiculopathy, lumbar region; H61.20 Impacted cerumen, unspecified ear